=== PATIENT | male | born 1970 | race Hispanic/Latino ===

== ENCOUNTER 2018-02-04 11:22 | Outpatient (CLI) | payer OTHER | END 2018-02-04 11:23 | disposition home or self-care (01) | LOC: BICRAD 11:22 | DX: S99.911A Unspecified injury of right ankle, initial encounter (principal); R60.0 Localized edema ==

== ENCOUNTER 2018-02-05 10:21 | Inpatient (IN) | payer OTHER, SELFPAY ==
[2018-02-05] MEDS ORDERED: Ketorolac Tromethamine 30 MG/ML VIAL ONE (11:10)
[2018-02-05] MEDS ORDERED: Piperacillin/Tazobactam 4.5 GM VIAL ONE (11:10)
[2018-02-05] MEDS ORDERED: Clindamycin/D5W 900 mg/50 ml Premix Bag ONE (11:10)
[2018-02-05] MEDS ORDERED: Ondansetron ODT 4 MG TAB ONE (11:12)
[2018-02-05 11:29] LABS: Hemoglobin 15.6 g/dL (14.0-18.0); Mean Corpuscular HGB CONC 34.7 g/dL (32.0-36.0); Mean Corpuscular Hemoglobin 32.3 pg (27.0-31.0); Mean Corpuscular Volume 92.9 fL (78.0-98.0); Mean Platelet Volume 7.6 fL (7.4-10.4); Platelet Count 206 thou/uL (130-400); RBC Distribution Width 13.1 % (11.5-14.5); Red Blood Cell (RBC) Count 4.83 mill/uL (4.70-6.10); White Blood Cell (WBC) Count 17.5 thou/uL (4.8-10.8)
[2018-02-05 11:50] LABS: ALT (SGPT) 15 U/L (8-55); AST (SGOT) 12 U/L (5-34); Albumin 3.9 g/dL (3.5-5.0); Alkaline Phosphatase 81 U/L (40-150); Anion Gap 14 mmol/L (10-20); BUN (Urea Nitrogen) 11 mg/dL (8.9-20.6); Bilirubin, Total 2.4 mg/dL (0.2-1.2); Calc. Creatinine Clearance 0 mL/min (70-130); Calcium 9.3 mg/dL (7.8-10.44); Carbon Dioxide 24 mmol/L (22-29); Chloride 102 mmol/L (98-107); Estimated GFR-MDRD 70; Globulin 3.6 g/dL (2.4-3.5); Glucose 123 mg/dL (70-105); Potassium 3.8 mmol/L (3.5-5.1); Protein, Total 7.5 g/dL (6.0-8.3); Sodium 136 mmol/L (136-145)
[2018-02-05 12:10] LABS: Band 24 % (5-11); Lymphocytes 9 % (21-51); MDiff Complete? YES; Monocytes 4 % (0-10); Neutrophil 62 % (42-75); RBC Morphology Normal; Reactive Lymphocytes 1 % (0-10)
[2018-02-05] MEDS ORDERED: Mag-Al 1200 mg/1200 mg/30 ML UDCUP PO PRN (13:47)
[2018-02-05] MEDS ORDERED: Loperamide HCl 2 MG CAP PO PRN (13:47)
[2018-02-05] MEDS ORDERED: Acetaminophen 325 MG TAB PO PRN (13:47)
[2018-02-05] MEDS ORDERED: Sodium Chloride 0.65% Nasal 44 ML BOT EA NARE PRN (13:47)
[2018-02-05] MEDS ORDERED: Loratadine 10 MG TAB PO PRN (13:47)
[2018-02-05] MEDS ORDERED: Eucerin (Mineral Oil/Petrolatum,White) 30 gm Jar TOP PRN (13:47)
[2018-02-05] MEDS ORDERED: Milk Of Magnesia 30 ML UDCUP PO PRN (13:47)
[2018-02-05] MEDS ORDERED: Chloraseptic Spray 180 ml Bottle PO PRN (13:47)
[2018-02-05] MEDS ORDERED: Ondansetron HCl/PF 4 MG/2 ML Vial IVP PRN (13:47)
[2018-02-05] MEDS ORDERED: hydrALAZINE 20 MG/ML VIAL SLOW IVP PRN (13:47)
[2018-02-05] MEDS ORDERED: Diabetic Tussin 200 MG/10 ML UDCUP PO PRN (13:47)
[2018-02-05] MEDS ORDERED: Artificial Tear Sol 15 ML BOT EA EYE PRN (13:47)
[2018-02-05] MEDS ORDERED: Ondansetron ODT 4 MG TAB PO PRN (13:47)
[2018-02-05] MEDS ORDERED: Senokot 8.6 MG TAB PO PRN (13:47)
[2018-02-05] MEDS ORDERED: Zolpidem Tartrate 5 MG TAB PO PRN (13:47)
[2018-02-05] MEDS: Sodium Chloride 0.9% 1,000 ML IV SCH ×2 (14:00→22:09)
--- NOTE | 2018-02-05 14:03 | HP ---
PRIMARY CARE PHYSICIAN: Patient does not have any primary care physician. REASON FOR ADMISSION: Right lower extremity cellulitis, sepsis. HISTORY OF PRESENT ILLNESS: A 47-year-old male who noticed right lower extremity erythema, swelling, tenderness on 02/01/2018. Patient's symptoms gradually gotten worse over the kend. He made appointment with primary care physician yesterday who prescribed antibiotic therapy wi th clindamycin. Even after that, patient was noticing that his lower extremity swelling was getting worse and he was getting more erythematous, tender, and he started having fever with chills. He was not feeling any better with oral antibiotic therapy and that is why he decided to come to emergency r oom for evaluation. In the emergency room, patient had sepsis alert. He had leukocytosis, tachycardia, and febrile with temperature of 101.4. He was having increasing erythema, swelling, and tenderness over right lower e xtremity and patient's symptoms were getting worse with walking. He denies any trauma. He denies an y insect bite. He denies any nausea, vomiting or diarrhea. He denies any UTI symptoms. He denies a ny constipation, diarrhea, melena or hematochezia. He denies any abdominal pain. REVIEW OF SYSTEMS: The following complete review of systems was negative, unless otherwise mentioned in the HPI or below: Constitutional: Weight loss or gain, ability to conduct usual activities. Skin: Rash, itching. Eyes: Double vision, pain. ENT/Mouth: Nose bleeding, neck stiffness, pain, tenderness. Cardiovascular: Palpitations, dyspnea on exertion, orthopnea. Respiratory: Shortness of breath, wheezing, cough, hemoptysis, fever or night sweats. Gastrointestinal: Poor appetite, abdominal pain, heartburn, nausea, vomiting, constipation, or diarr hea. Genitourinary: Urgency, frequency, dysuria, nocturia. Musculoskeletal: Pain, swelling. Neurologic/Psychiatric: Anxiety, depression. Allergy/Immunologic: Skin rash, bleeding tendency. Please see my HPI for pertinent positive and negative. All other review of systems reviewed and nega tive except as mentioned in the HPI. PAST MEDICAL HISTORY: The patient does not have any medical history. Patient reports that he had si milar cellulitis in the past. He was also one time admitted in our hospital for left foot infection. He has history of snake bite. PAST SURGICAL HISTORY: Reviewed and negative. PAST PHYSIATRIC HISTORY: Reviewed and negative. SOCIAL HISTORY: The patient lives at home with family. No history of tobacco, alcohol or illicit dr ug abuse. He is doing manual labor work. FAMILY HISTORY: No strong family history of premature coronary artery disease, stroke or cancer. No family history of diabetes. ALLERGIES: The patient does not have any real drug allergy. He is not sure about vancomycin allergy . He tolerated vancomycin in the emergency room very well. CURRENT HOME MEDICATIONS: Patient is given clindamycin and patient is not able to tell me the dose. EMERGENCY ROOM COURSE: Patient has received vancomycin, clindamycin, Zosyn, Zofran 4 mg, morphine 4 mg, Toradol 30 mg, IV fluid 2 liter. PHYSICAL EXAMINATION: VITAL SIGNS: On arrival, pulse 111, temperature 101.4, respiratory rate 24, blood pressure 115/72, s aturation 98% on room air, weight 89.8 kilograms. GENERAL: Patient is currently alert, awake, no obvious acute distress. HEAD: Normocephalic, atraumatic. EYES: Pupils round, reactive to light. Extraocular muscle intact. ENT: Oropharynx within normal limits. Moist mucous membranes. No oral lesion, no pharyngeal erythe ma, no exudate. NECK: Supple, no JVD, no thyromegaly, no carotid bruit, no jugular venous distention. LUNGS: Clear to auscultation without any rhonchi or rales. CARDIAC: S1 and S2 regular, tachycardia, no murmur, no gallop, no rub. ABDOMEN: Soft, bowel sounds present, nontender, nondistended. No organomegaly, no mass, no suprapub ic tenderness. BACK: Examination unremarkable, no CVA tenderness. EXTREMITIES: Upper extremity passive movement of all joints are normal. Lower extremity; right lowe r extremity erythematous, swollen, tender. Right foot has a nail deformity. No calf tenderness. No groin tenderness. Left lower extremity within normal limit. NEUROLOGIC: The patient is alert, oriented x3. Cranial nerves II-XII intact. Motor and sensation w ithin normal limits. Nonfocal examination. PSYCHIATRIC: Normal affect. HEMATOLOGICAL SYSTEM: No lymphadenopathy. SIGNIFICANT LABORATORY DATA: 1. CBC: WBC 17.5, hemoglobin 15.6, platelet 206 with bandemia. BMP: Sodium 136, potassium 3.8, ch loride 102, carbon dioxide 24, anion gap 14, BUN 11, creatinine 1.12, glucose 123, calcium 9.3, lacti c acid 1.5. 2. LFT: AST 12, ALT 15, alkaline phosphatase 81, albumin 3.9. ASSESSMENT AND PLAN/IMPRESSION: 1. Sepsis due to right lower extremity cellulitis with soft tissue infection. 2. Failure of outpatient therapy. 3. Right lower extremity cellulitis with sepsis. PLAN: 1. Full admission to medical floor. We will continue with Rocephin 2 gram IV daily, clindamycin 600 mg IV q.6 hourly, Florastor 250 mg p.o. b.i.d. Pain control with morphine 4 mg every 4 hourly p.r.n . and Toradol 15 mg IV q.6 hourly p.r.n. Patient will be given IV fluid with NS at 125 mL per hour. The patient is advised to keep his right lower extremity elevated. We will repeat the CBC, CMP, and CRP tomorrow. We will follow up on culture result. 2. Deep venous thrombosis prophylaxis, Lovenox 40 mg subcu daily. 3. Gastrointestinal prophylaxis, Pepcid 20 mg p.o. b.i.d. 4. Code status: The patient is FULL CODE. Patient's son is surrogate decision maker. Disposition plan based on clinical course. We are expecting patient's stay in hospital more than 2 m idnights. Plan of care discussed with the patient and family member at bedside in the emergency room in detail.
[2018-02-05 14:26] VITALS: BMI 29.9
[2018-02-05] MEDS: cefTRIAXone\\ROCEPHIN 2 GM in Sodium Chloride 0.9% 100 ML IVPB SCH (16:04)
[2018-02-05] MEDS: Clindamycin/D5W 600 MG in Premix Bag 1 BAG IVPB SCH ×2 (17:33→23:44)
[2018-02-05] MEDS: Famotidine 20 MG TAB PO SCH (19:57)
[2018-02-05] MEDS: HYDROcodone/Acetaminophen 5/325 mg Tablet PO PRN (23:47)
[2018-02-06] MEDS: Sodium Chloride 0.9% 1,000 ML IV SCH ×3 (02:34→20:20)
[2018-02-06 05:19] LABS: #Eosinphils 0.1 thou/uL (0.0-0.7); #Lymphocytes 1.5 thou/uL (1.20-3.40); #Monocytes 0.6 thou/uL (0.11-0.59); #Neutrophils 8.2 thou/uL (1.40-6.50); %Basophils 0.2 % (0.0-1.0); %Eosinophils 0.5 % (0.0-10.0); %Lymphocytes 14.1 % (21.0-51.0); %Neutrophils 79.2 % (42.0-75.0); Hemoglobin 13.9 g/dL (14.0-18.0); Mean Corpuscular HGB CONC 35.4 g/dL (32.0-36.0); Mean Corpuscular Hemoglobin 33.1 pg (27.0-31.0); Mean Corpuscular Volume 93.5 fL (78.0-98.0); Mean Platelet Volume 7.4 fL (7.4-10.4); Platelet Count 194 thou/uL (130-400); RBC Distribution Width 13.2 % (11.5-14.5); Red Blood Cell (RBC) Count 4.19 mill/uL (4.70-6.10); White Blood Cell (WBC) Count 10.4 thou/uL (4.8-10.8)
[2018-02-06] MEDS: Clindamycin/D5W 600 MG in Premix Bag 1 BAG IVPB SCH ×4 (05:27→23:11)
[2018-02-06 05:39] LABS: ALT (SGPT) 13 U/L (8-55); AST (SGOT) 13 U/L (5-34); Albumin 3.2 g/dL (3.5-5.0); Alkaline Phosphatase 74 U/L (40-150); Anion Gap 13 mmol/L (10-20); BUN (Urea Nitrogen) 11 mg/dL (8.9-20.6); Bilirubin, Total 1.2 mg/dL (0.2-1.2); CRP (Inflammatory) 24.29 mg/dL (= or < 0.5); Calc. Creatinine Clearance 106 mL/min (70-130); Calcium 8.4 mg/dL (7.8-10.44); Carbon Dioxide 19 mmol/L (22-29); Chloride 108 mmol/L (98-107); Estimated GFR-MDRD 72; Globulin 3.2 g/dL (2.4-3.5); Glucose 104 mg/dL (70-105); Potassium 3.4 mmol/L (3.5-5.1); Protein, Total 6.4 g/dL (6.0-8.3); Sodium 137 mmol/L (136-145)
[2018-02-06] MEDS ORDERED: Potassium Chloride 20 MEQ TAB PO SCH (07:30)
[2018-02-06] MEDS: Famotidine 20 MG TAB PO SCH ×2 (08:21→20:18)
[2018-02-06] MEDS: Saccharomyces boulardii 250 MG CAP PO SCH (08:21)
[2018-02-06] MEDS: Enoxaparin Sodium 40 MG/0.4 ML SYRINGE SC SCH (08:22)
[2018-02-06] MEDS: Ketorolac Tromethamine 30 MG/ML VIAL IVP PRN ×2 (08:27→20:20)
--- NOTE | 2018-02-06 11:44 | PDOC.PN ---
- Subjective Encounter Start Date: 02/06/18 Encounter Start Time: 09:15 -: old records requested/rev Patient seen and examined for cellulitis, no fever, has pain in right leg. No new complaints. No overnight events - Objective Resuscitation Status: Resuscitation Status FULL:Full Resuscitation MAR Reviewed: Yes Vital Signs & Weight: Vital Signs (12 hours) Temp Pulse Resp BP Pulse Ox 02/06/18 07:52 97.6 F 71 16 99 02/06/18 07:50 97.6 F 71 16 108/64 100 02/06/18 06:30 97.4 F L 73 18 107/70 99 02/06/18 01:07 98.0 F 87 18 118/73 98 I&O: 02/05/18 02/06/18 02/07/18 06:59 06:59 06:59 Intake Total 2100 Output Total 1225 Balance 875 Result Diagrams: 02/06/18 04:54 02/06/18 04:54 Phys Exam - Physical Examination Constitutional: NAD HEENT: PERRLA, moist MMs, sclera anicteric Neck: no JVD, supple Respiratory: no wheezing, no rales, no rhonchi Cardiovascular: RRR, no significant murmur, no rub Gastrointestinal: soft, non-tender, no distention, positive bowel sounds Musculoskeletal: no edema, pulses present right leg cellulitis and tenderness Neurological: non-focal, normal sensation, moves all 4 limbs Psychiatric: normal affect, A&O x 3 Skin: no rash, normal turgor Dx/Plan (1) Cellulitis of right leg Code(s): L03.115 - CELLULITIS OF RIGHT LOWER LIMB Status: Acute (2) Failure of outpatient treatment Code(s): Z78.9 - OTHER SPECIFIED HEALTH STATUS Status: Acute (3) Hypokalemia Code(s): E87.6 - HYPOKALEMIA Status: Acute (4) Sepsis affecting skin Code(s): A41.9 - SEPSIS, UNSPECIFIED ORGANISM Status: Acute - Plan cont current plan of care, plan discussed w/ family, continue antibiotics * continue rocephin and clindamycin * pain control with toradol and morphin * medication reviewed as below * symptomatic treatment * follow culture * discussed with son * replace potassium. * continue IVF * will get US right leg to rule out DVT Review of Systems - Review of Systems Constitutional: negative: fever, chills, sweats, weakness, malaise, other Eyes: negative: Pain, Vision Change, Conjunctivae Inflammation, Eyelid Inflammation, Redness, Other ENT: negative: Ear Pain, Ear Discharge, Nose Pain, Nose Discharge, Nose Congestion, Mouth Pain, Mouth Swelling, Throat Pain, Throat Swelling, Other Respiratory: negative: Cough, Dry, Shortness of Breath, Hemoptysis, SOB with Excertion, Pleuritic Pain, Sputum, Wheezing Cardiovascular: negative: chest pain, palpitations, orthopnea, paroxysmal nocturnal dyspnea, edema, light headedness, other Gastrointestinal: negative: Nausea, Vomiting, Abdominal Pain, Diarrhea, Constipation, Melena, Hematochezia, Other Genitourinary: negative: Dysuria, Frequency, Incontinence, Hematuria, Retention , Other Musculoskeletal: Leg Pain. negative: Neck Pain, Shoulder Pain, Arm Pain, Back Pain, Hand Pain, Foot Pain, Other - Medications/Allergies Allergies/Adverse Reactions: Allergies Allergy/AdvReac Type Severity Reaction Status Date / Time vancomycin AdvReac Mild Rash Verified 09/21/13 19:35 Medications: Current Medications Acetaminophen (Tylenol) 650 mg PO Q4H PRN PRN Reason: Headache/Fever or Pain Hydrocodone Bitart/Acetaminophen ([place] 5/325) 1 tab PO Q4H PRN PRN Reason: Moderate Pain (4-6) Last Admin: 02/05/18 23:47 Dose: 1 tab Al Hydroxide/Mg Hydroxide (Maalox) 30 ml PO Q6H PRN PRN Reason: Heartburn or Indigestion Artificial Tears (Tears Renewed 15ml Bottle) 0 drop EA EYE PRN PRN PRN Reason: Dry Eyes Enoxaparin Sodium (Lovenox) 40 mg SC 0900 [facility] Last Admin: 02/06/18 08:22 Dose: 40 mg Famotidine (Pepcid) 20 mg PO BID [facility] Last Admin: 02/06/18 08:21 Dose: 20 mg Guaifenesin (Robitussin Sf) 200 mg PO Q4H PRN PRN Reason: Cough Hydralazine HCl (Apresoline) 10 mg SLOW IVP Q4H PRN PRN Reason: Systolic BP > 180 Ceftriaxone Sodium 2 gm/ (Sodium Chloride) 100 mls @ 200 mls/hr IVPB Q24HR [facility] Last Admin: 02/05/18 16:04 Dose: 100 mls Clindamycin Phosphate/Dextrose (600 mg/ Device) 50 mls @ 100 mls/hr IVPB Q6HR [facility] Last Admin: 02/06/18 05:27 Dose: 50 mls Sodium Chloride (Normal Saline 0.9%) 1,000 mls @ 125 mls/hr IV .Q8H [facility] Last Admin: 02/06/18 02:34 Dose: 1,000 mls Ketorolac Tromethamine (Toradol) 15 mg IVP Q6H PRN PRN Reason: Pain Stop: 02/10/18 13:48 Last Admin: 02/06/18 08:27 Dose: 15 mg Loperamide HCl (Imodium) 2 mg PO PRN PRN PRN Reason: Diarrhea/Loose Stools Loratadine (Claritin) 10 mg PO DAILYPRN PRN PRN Reason: Sinus Symptoms Magnesium Hydroxide (Milk Of Magnesium) 30 ml PO DAILYPRN PRN PRN Reason: Constipation Mineral Oil/White Petrolatum (Eucerin Cream) 0 gm TOP BIDPRN PRN PRN Reason: Dry Skin Morphine Sulfate (Morphine Sulfate) 4 mg SLOW IVP Q4H PRN PRN Reason: Severe Pain (7-10) Ondansetron HCl (Zofran Odt) 4 mg PO Q6H PRN PRN Reason: Nausea/Vomiting Ondansetron HCl (Zofran) 4 mg IVP Q6H PRN PRN Reason: Nausea/Vomiting Phenol (Chloraseptic [place] 180 Ml Bot) 0 ml PO PRN PRN PRN Reason: Sore Throat Saccharomyces Boulardii (Florastor) 250 mg PO DAILY [facility] Last Admin: 02/06/18 08:21 Dose: 250 mg Senna (Senokot) 2 tab PO HSPRN PRN PRN Reason: Constipation Sodium Chloride ([place] Nasal [place] 0.65%) 0 ml EA NARE QIDPRN PRN PRN Reason: Nasal Congestion Sodium Chloride (Flush - Normal Saline) 10 ml IVF Q12HR [facility] Last Admin: 02/06/18 08:22 Dose: 10 ml Sodium Chloride (Flush - Normal Saline) 10 ml IVF PRN PRN PRN Reason: Saline Flush Zolpidem Tartrate (Ambien) 5 mg PO HSPRN PRN PRN Reason: Insomnia
--- NOTE | 2018-02-06 13:04 | ULT ---
VENOUS DOPPLER ULTRASOUND OF THE RIGHT LOWER EXTREMITY: HISTORY: Right leg edema. Ulceration of the medial ankle. TECHNIQUE: Frank scale ultrasound with color flow and spectral Doppler imaging of the deep venous system of the r ight lower extremity was performed. FINDINGS: There is good flow, compression, and augmentation noted in the common femoral, femoral, deep femoral, popliteal, posterior tibial, and greater saphenous veins in the right lower extremity. There are enlarged lymph nodes in the right groin measuring up to 4.3 cm in maximum dimension. There is an 11.7 x 1.5 x 2.7 cm complex fluid collection in the soft tissues of the medial aspect of the r ight ankle. The possibility of this representing an abscess cannot be excluded. IMPRESSION: No evidence of deep vein thrombosis in the right lower extremity. Please see above. POS: DANIAL
[2018-02-06] MEDS: cefTRIAXone\\ROCEPHIN 2 GM in Sodium Chloride 0.9% 100 ML IVPB SCH (14:50)
[2018-02-07] MEDS: Clindamycin/D5W 600 MG in Premix Bag 1 BAG IVPB SCH ×3 (05:31→17:29)
[2018-02-07] MEDS: Sodium Chloride 0.9% 1,000 ML IV SCH ×3 (05:31→23:21)
[2018-02-07] MEDS: Ketorolac Tromethamine 30 MG/ML VIAL IVP PRN ×3 (05:34→21:01)
[2018-02-07] MEDS: Enoxaparin Sodium 40 MG/0.4 ML SYRINGE SC SCH (08:20)
[2018-02-07] MEDS: Famotidine 20 MG TAB PO SCH ×2 (08:20→20:58)
[2018-02-07] MEDS: Saccharomyces boulardii 250 MG CAP PO SCH (08:20)
--- NOTE | 2018-02-07 11:30 | PDOC.PN ---
- Subjective Encounter Start Date: 02/07/18 Encounter Start Time: 10:00 Patient seen and examined for cellulitis right leg, he has pain with walking. No overnight events - Objective Resuscitation Status: Resuscitation Status FULL:Full Resuscitation MAR Reviewed: Yes Vital Signs & Weight: Vital Signs (12 hours) Temp Pulse Resp BP Pulse Ox 02/07/18 07:41 97.8 F 72 20 123/77 98 I&O: 02/06/18 02/07/18 02/08/18 06:59 06:59 06:59 Intake Total 2100 4220 Output Total 1225 1800 Balance 875 2420 Result Diagrams: 02/06/18 04:54 02/06/18 04:54 Radiology Reviewed by me: Yes (US leg- No DVT) Phys Exam - Physical Examination Constitutional: NAD HEENT: PERRLA, moist MMs, sclera anicteric Neck: no JVD, supple Respiratory: no wheezing, no rales, no rhonchi Cardiovascular: RRR, no significant murmur, no rub Gastrointestinal: soft, non-tender, no distention, positive bowel sounds Musculoskeletal: no edema, pulses present cellulitis right leg is improving Neurological: non-focal, normal sensation, moves all 4 limbs Psychiatric: normal affect, A&O x 3 Skin: no rash, normal turgor Dx/Plan (1) Cellulitis of right leg Code(s): L03.115 - CELLULITIS OF RIGHT LOWER LIMB Status: Acute (2) Failure of outpatient treatment Code(s): Z78.9 - OTHER SPECIFIED HEALTH STATUS Status: Acute (3) Hypokalemia Code(s): E87.6 - HYPOKALEMIA Status: Acute (4) Sepsis affecting skin Code(s): A41.9 - SEPSIS, UNSPECIFIED ORGANISM Status: Acute - Plan cont current plan of care, plan discussed w/ family, continue antibiotics * continue rocephin, clindamycin * will add vancomycin * continue pain control * medication reviewed as below * symptomatic treatment. * discussed with family Review of Systems - Review of Systems Eyes: negative: Pain, Vision Change, Conjunctivae Inflammation, Eyelid Inflammation, Redness, Other ENT: negative: Ear Pain, Ear Discharge, Nose Pain, Nose Discharge, Nose Congestion, Mouth Pain, Mouth Swelling, Throat Pain, Throat Swelling, Other Respiratory: negative: Cough, Dry, Shortness of Breath, Hemoptysis, SOB with Excertion, Pleuritic Pain, Sputum, Wheezing Cardiovascular: negative: chest pain, palpitations, orthopnea, paroxysmal nocturnal dyspnea, edema, light headedness, other Gastrointestinal: negative: Nausea, Vomiting, Abdominal Pain, Diarrhea, Constipation, Melena, Hematochezia, Other Genitourinary: negative: Dysuria, Frequency, Incontinence, Hematuria, Retention , Other Musculoskeletal: Leg Pain. negative: Neck Pain, Shoulder Pain, Arm Pain, Back Pain, Hand Pain, Foot Pain, Other Skin: negative: Rash, Lesions, [place], Bruising, Other - Medications/Allergies Allergies/Adverse Reactions: Allergies Allergy/AdvReac Type Severity Reaction Status Date / Time No Known Allergies Allergy Verified 02/07/18 08:25 Medications: Current Medications Acetaminophen (Tylenol) 650 mg PO Q4H PRN PRN Reason: Headache/Fever or Pain Hydrocodone Bitart/Acetaminophen ([place] 5/325) 1 tab PO Q4H PRN PRN Reason: Moderate Pain (4-6) Last Admin: 02/05/18 23:47 Dose: 1 tab Al Hydroxide/Mg Hydroxide (Maalox) 30 ml PO Q6H PRN PRN Reason: Heartburn or Indigestion Artificial Tears (Tears Renewed 15ml Bottle) 0 drop EA EYE PRN PRN PRN Reason: Dry Eyes Enoxaparin Sodium (Lovenox) 40 mg SC 0900 [facility] Last Admin: 02/07/18 08:20 Dose: 40 mg Famotidine (Pepcid) 20 mg PO BID [facility] Last Admin: 02/07/18 08:20 Dose: 20 mg Guaifenesin (Robitussin Sf) 200 mg PO Q4H PRN PRN Reason: Cough Hydralazine HCl (Apresoline) 10 mg SLOW IVP Q4H PRN PRN Reason: Systolic BP > 180 Ceftriaxone Sodium 2 gm/ (Sodium Chloride) 100 mls @ 200 mls/hr IVPB Q24HR [facility] Last Admin: 02/06/18 14:50 Dose: 100 mls Clindamycin Phosphate/Dextrose (600 mg/ Device) 50 mls @ 100 mls/hr IVPB Q6HR [facility] Last Admin: 02/07/18 05:31 Dose: 50 mls Sodium Chloride (Normal Saline 0.9%) 1,000 mls @ 125 mls/hr IV .Q8H [facility] Last Admin: 02/07/18 05:31 Dose: 1,000 mls Ketorolac Tromethamine (Toradol) 15 mg IVP Q6H PRN PRN Reason: Pain Stop: 02/10/18 13:48 Last Admin: 02/07/18 05:34 Dose: 15 mg Loperamide HCl (Imodium) 2 mg PO PRN PRN PRN Reason: Diarrhea/Loose Stools Loratadine (Claritin) 10 mg PO DAILYPRN PRN PRN Reason: Sinus Symptoms Magnesium Hydroxide (Milk Of Magnesium) 30 ml PO DAILYPRN PRN PRN Reason: Constipation Mineral Oil/White Petrolatum (Eucerin Cream) 0 gm TOP BIDPRN PRN PRN Reason: Dry Skin Morphine Sulfate (Morphine Sulfate) 4 mg SLOW IVP Q4H PRN PRN Reason: Severe Pain (7-10) Ondansetron HCl (Zofran Odt) 4 mg PO Q6H PRN PRN Reason: Nausea/Vomiting Ondansetron HCl (Zofran) 4 mg IVP Q6H PRN PRN Reason: Nausea/Vomiting Phenol (Chloraseptic [place] 180 Ml Bot) 0 ml PO PRN PRN PRN Reason: Sore Throat Saccharomyces Boulardii (Florastor) 250 mg PO DAILY [facility] Last Admin: 02/07/18 08:20 Dose: 250 mg Senna (Senokot) 2 tab PO HSPRN PRN PRN Reason: Constipation Sodium Chloride ([place] Nasal [place] 0.65%) 0 ml EA NARE QIDPRN PRN PRN Reason: Nasal Congestion Sodium Chloride (Flush - Normal Saline) 10 ml IVF Q12HR [facility] Last Admin: 02/07/18 08:20 Dose: 10 ml Sodium Chloride (Flush - Normal Saline) 10 ml IVF PRN PRN PRN Reason: Saline Flush Zolpidem Tartrate (Ambien) 5 mg PO HSPRN PRN PRN Reason: Insomnia
[2018-02-07] MEDS: cefTRIAXone\\ROCEPHIN 2 GM in Sodium Chloride 0.9% 100 ML IVPB SCH (15:24)
[2018-02-08] MEDS: Clindamycin/D5W 600 MG in Premix Bag 1 BAG IVPB SCH ×2 (02:30→07:18)
[2018-02-08] MEDS: Sodium Chloride 0.9% 1,000 ML IV SCH (06:09)
[2018-02-08] MEDS: Famotidine 20 MG TAB PO SCH ×2 (08:47→21:04)
[2018-02-08] MEDS: Enoxaparin Sodium 40 MG/0.4 ML SYRINGE SC SCH (08:47)
[2018-02-08] MEDS: Saccharomyces boulardii 250 MG CAP PO SCH (08:48)
[2018-02-08] MEDS: HYDROcodone/Acetaminophen 5/325 mg Tablet PO PRN ×2 (08:58→17:47)
[2018-02-08 09:16] LABS: #Eosinphils 0.1 thou/uL (0.0-0.7); #Lymphocytes 0.9 thou/uL (1.20-3.40); #Monocytes 0.4 thou/uL (0.11-0.59); #Neutrophils 5.2 thou/uL (1.40-6.50); %Basophils 0.2 % (0.0-1.0); %Eosinophils 1.1 % (0.0-10.0); %Lymphocytes 13.2 % (21.0-51.0); %Monocytes 5.8 % (0.0-10.0); %Neutrophils 79.7 % (42.0-75.0); Hemoglobin 14.1 g/dL (14.0-18.0); Mean Corpuscular HGB CONC 35.4 g/dL (32.0-36.0); Mean Corpuscular Hemoglobin 32.1 pg (27.0-31.0); Mean Corpuscular Volume 90.6 fL (78.0-98.0); Mean Platelet Volume 7.2 fL (7.4-10.4); Platelet Count 237 thou/uL (130-400); RBC Distribution Width 12.7 % (11.5-14.5); Red Blood Cell (RBC) Count 4.41 mill/uL (4.70-6.10); White Blood Cell (WBC) Count 6.5 thou/uL (4.8-10.8)
[2018-02-08 09:33] LABS: Anion Gap 13 mmol/L (10-20); BUN (Urea Nitrogen) 9 mg/dL (8.9-20.6); CRP (Inflammatory) 6.56 mg/dL (= or < 0.5); Calc. Creatinine Clearance 142 mL/min (70-130); Carbon Dioxide 22 mmol/L (22-29); Chloride 106 mmol/L (98-107); Estimated GFR-MDRD Greater than 90; Glucose 133 mg/dL (70-105); Sodium 137 mmol/L (136-145)
[2018-02-08] MEDS: Vancomycin HCl 1.25 GM in Sodium Chloride 0.9% 250 ML 250 ML IVPB SCH ×2 (10:37→17:31)
--- NOTE | 2018-02-08 11:31 | PDOC.PN ---
- Subjective Encounter Start Date: 02/08/18 Encounter Start Time: 09:30 Patient seen and examined for cellulitis, he has pain with walking, pt feels more erythema lower leg. No new complaints. No overnight events - Objective Resuscitation Status: Resuscitation Status FULL:Full Resuscitation MAR Reviewed: Yes Vital Signs & Weight: Vital Signs (12 hours) Temp Pulse Resp BP Pulse Ox 02/08/18 08:00 97.8 F 66 18 122/79 97 02/08/18 06:31 98.0 F 79 20 129/78 97 02/08/18 00:00 97.7 F 70 20 127/75 97 I&O: 02/07/18 02/08/18 02/09/18 06:59 06:59 06:59 Intake Total 4220 1739 240 Output Total 1800 Balance 2420 1739 240 Result Diagrams: 02/08/18 09:01 02/08/18 09:01 Phys Exam - Physical Examination Constitutional: NAD HEENT: PERRLA, moist MMs, sclera anicteric Neck: no JVD, supple Respiratory: no wheezing, no rales, no rhonchi Cardiovascular: RRR, no significant murmur, no rub Gastrointestinal: soft, non-tender, no distention, positive bowel sounds Musculoskeletal: no edema, pulses present right leg erythema, swelling Neurological: non-focal, normal sensation, moves all 4 limbs Psychiatric: normal affect, A&O x 3 Skin: no rash, normal turgor Dx/Plan (1) Cellulitis of right leg Code(s): L03.115 - CELLULITIS OF RIGHT LOWER LIMB Status: Acute (2) Failure of outpatient treatment Code(s): Z78.9 - OTHER SPECIFIED HEALTH STATUS Status: Acute (3) Hypokalemia Code(s): E87.6 - HYPOKALEMIA Status: Acute (4) Sepsis affecting skin Code(s): A41.9 - SEPSIS, UNSPECIFIED ORGANISM Status: Acute - Plan cont current plan of care, plan discussed w/ family, continue antibiotics * i doubt at this point any surgical need * will consult dr vasquez * continue rocephin and vancomycin * dc clindamycin * lab lara has improvement * he may have microabscess or underlying myositis/tendinitis * medication reviewed as below * symptomatic treatment Review of Systems - Review of Systems Constitutional: negative: fever, chills, sweats, weakness, malaise, other Eyes: negative: Pain, Vision Change, Conjunctivae Inflammation, Eyelid Inflammation, Redness, Other ENT: negative: Ear Pain, Ear Discharge, Nose Pain, Nose Discharge, Nose Congestion, Mouth Pain, Mouth Swelling, Throat Pain, Throat Swelling, Other Respiratory: negative: Cough, Dry, Shortness of Breath, Hemoptysis, SOB with Excertion, Pleuritic Pain, Sputum, Wheezing Cardiovascular: negative: chest pain, palpitations, orthopnea, paroxysmal nocturnal dyspnea, edema, light headedness, other Gastrointestinal: negative: Nausea, Vomiting, Abdominal Pain, Diarrhea, Constipation, Melena, Hematochezia, Other Genitourinary: negative: Dysuria, Frequency, Incontinence, Hematuria, Retention , Other Musculoskeletal: Leg Pain. negative: Neck Pain, Shoulder Pain, Arm Pain, Back Pain, Hand Pain, Foot Pain, Other - Medications/Allergies Allergies/Adverse Reactions: Allergies Allergy/AdvReac Type Severity Reaction Status Date / Time No Known Allergies Allergy Verified 02/07/18 08:25 Medications: Current Medications Acetaminophen (Tylenol) 650 mg PO Q4H PRN PRN Reason: Headache/Fever or Pain Hydrocodone Bitart/Acetaminophen ([place] 5/325) 1 tab PO Q4H PRN PRN Reason: Moderate Pain (4-6) Last Admin: 02/08/18 08:58 Dose: 1 tab Al Hydroxide/Mg Hydroxide (Maalox) 30 ml PO Q6H PRN PRN Reason: Heartburn or Indigestion Artificial Tears (Tears Renewed 15ml Bottle) 0 drop EA EYE PRN PRN PRN Reason: Dry Eyes Enoxaparin Sodium (Lovenox) 40 mg SC 0900 [facility] Last Admin: 02/08/18 08:47 Dose: 40 mg Famotidine (Pepcid) 20 mg PO BID [facility] Last Admin: 02/08/18 08:47 Dose: 20 mg Guaifenesin (Robitussin Sf) 200 mg PO Q4H PRN PRN Reason: Cough Hydralazine HCl (Apresoline) 10 mg SLOW IVP Q4H PRN PRN Reason: Systolic BP > 180 Ceftriaxone Sodium 2 gm/ (Sodium Chloride) 100 mls @ 200 mls/hr IVPB Q24HR [facility] Last Admin: 02/07/18 15:24 Dose: 100 mls Vancomycin HCl 1.25 gm/ Sodium (Chloride) 250 mls @ 166.667 mls/hr IVPB 0200, 1000,1800 [facility] Last Admin: 02/08/18 10:37 Dose: 250 mls Ketorolac Tromethamine (Toradol) 15 mg IVP Q6H PRN PRN Reason: Pain Stop: 02/10/18 13:48 Last Admin: 02/07/18 21:01 Dose: 15 mg Loperamide HCl (Imodium) 2 mg PO PRN PRN PRN Reason: Diarrhea/Loose Stools Loratadine (Claritin) 10 mg PO DAILYPRN PRN PRN Reason: Sinus Symptoms Magnesium Hydroxide (Milk Of Magnesium) 30 ml PO DAILYPRN PRN PRN Reason: Constipation Last Admin: 02/07/18 20:59 Dose: 30 ml Mineral Oil/White Petrolatum (Eucerin Cream) 0 gm TOP BIDPRN PRN PRN Reason: Dry Skin Morphine Sulfate (Morphine Sulfate) 4 mg SLOW IVP Q4H PRN PRN Reason: Severe Pain (7-10) Ondansetron HCl (Zofran Odt) 4 mg PO Q6H PRN PRN Reason: Nausea/Vomiting Ondansetron HCl (Zofran) 4 mg IVP Q6H PRN PRN Reason: Nausea/Vomiting Phenol (Chloraseptic [place] 180 Ml Bot) 0 ml PO PRN PRN PRN Reason: Sore Throat Saccharomyces Boulardii (Florastor) 250 mg PO DAILY [facility] Last Admin: 02/08/18 08:48 Dose: 250 mg Senna (Senokot) 2 tab PO HSPRN PRN PRN Reason: Constipation Sodium Chloride ([place] Nasal [place] 0.65%) 0 ml EA NARE QIDPRN PRN PRN Reason: Nasal Congestion Sodium Chloride (Flush - Normal Saline) 10 ml IVF Q12HR [facility] Last Admin: 02/08/18 08:48 Dose: 10 ml Sodium Chloride (Flush - Normal Saline) 10 ml IVF PRN PRN PRN Reason: Saline Flush Zolpidem Tartrate (Ambien) 5 mg PO HSPRN PRN PRN Reason: Insomnia
[2018-02-08] MEDS ORDERED: Vancomycin HCl 1.5 GM in Sodium Chloride 0.9% 250 ML 300 ML IVPB SCH (12:00)
[2018-02-08] MEDS: cefTRIAXone\\ROCEPHIN 2 GM in Sodium Chloride 0.9% 100 ML IVPB SCH (14:10)
[2018-02-09] MEDS: Vancomycin HCl 1.25 GM in Sodium Chloride 0.9% 250 ML 250 ML IVPB SCH ×2 (02:55→10:51)
[2018-02-09] MEDS: HYDROcodone/Acetaminophen 5/325 mg Tablet PO PRN ×2 (03:15→19:57)
[2018-02-09] MEDS: Famotidine 20 MG TAB PO SCH ×2 (08:04→19:57)
[2018-02-09] MEDS: Saccharomyces boulardii 250 MG CAP PO SCH (08:04)
[2018-02-09] MEDS: Enoxaparin Sodium 40 MG/0.4 ML SYRINGE SC SCH (08:04)
--- NOTE | 2018-02-09 10:33 | PDOC.PN ---
- Subjective Encounter Start Date: 02/09/18 Encounter Start Time: 09:40 Patient seen and examined for cellulitis, still has leg pain. No overnight events - Objective Resuscitation Status: Resuscitation Status FULL:Full Resuscitation MAR Reviewed: Yes Vital Signs & Weight: Vital Signs (12 hours) Temp Pulse Resp BP Pulse Ox 02/09/18 08:00 98.0 F 59 L 18 144/87 H 98 02/09/18 04:00 97.7 F 59 L 18 120/72 98 02/09/18 00:00 97.8 F 60 18 129/77 98 I&O: 02/08/18 02/09/18 02/10/18 06:59 06:59 06:59 Intake Total 1739 3020 Balance 1739 3020 Result Diagrams: 02/08/18 09:01 02/08/18 09:01 Phys Exam - Physical Examination Constitutional: NAD HEENT: PERRLA, moist MMs, sclera anicteric Neck: no JVD, supple Respiratory: no wheezing, no rales, no rhonchi Cardiovascular: RRR, no significant murmur, no rub Gastrointestinal: soft, non-tender, no distention, positive bowel sounds right leg cellulitis Musculoskeletal: no edema, pulses present Neurological: non-focal, normal sensation, moves all 4 limbs Lymphatic: no nodes Psychiatric: normal affect, A&O x 3 Skin: no rash, normal turgor Dx/Plan (1) Cellulitis of right leg Code(s): L03.115 - CELLULITIS OF RIGHT LOWER LIMB Status: Acute (2) Failure of outpatient treatment Code(s): Z78.9 - OTHER SPECIFIED HEALTH STATUS Status: Acute (3) Hypokalemia Code(s): E87.6 - HYPOKALEMIA Status: Acute (4) Sepsis affecting skin Code(s): A41.9 - SEPSIS, UNSPECIFIED ORGANISM Status: Acute - Plan cont current plan of care, plan discussed w/ family, continue antibiotics * medication reviewed as below * symptomatic treatment * continue rocephin and vancomycin * pain control * ID consulted * discussed with son. Review of Systems - Review of Systems Eyes: negative: Pain, Vision Change, Conjunctivae Inflammation, Eyelid Inflammation, Redness, Other ENT: negative: Ear Pain, Ear Discharge, Nose Pain, Nose Discharge, Nose Congestion, Mouth Pain, Mouth Swelling, Throat Pain, Throat Swelling, Other Respiratory: negative: Cough, Dry, Shortness of Breath, Hemoptysis, SOB with Excertion, Pleuritic Pain, Sputum, Wheezing Cardiovascular: negative: chest pain, palpitations, orthopnea, paroxysmal nocturnal dyspnea, edema, light headedness, other Gastrointestinal: negative: Nausea, Vomiting, Abdominal Pain, Diarrhea, Constipation, Melena, Hematochezia, Other Genitourinary: negative: Dysuria, Frequency, Incontinence, Hematuria, Retention , Other Musculoskeletal: Leg Pain. negative: Neck Pain, Shoulder Pain, Arm Pain, Back Pain, Hand Pain, Foot Pain, Other Skin: negative: Rash, Lesions, Guzman, Bruising, Other - Medications/Allergies Allergies/Adverse Reactions: Allergies Allergy/AdvReac Type Severity Reaction Status Date / Time No Known Allergies Allergy Verified 02/07/18 08:25 Medications: Current Medications Acetaminophen (Tylenol) 650 mg PO Q4H PRN PRN Reason: Headache/Fever or Pain Hydrocodone Bitart/Acetaminophen ([place] 5/325) 1 tab PO Q4H PRN PRN Reason: Moderate Pain (4-6) Last Admin: 02/09/18 03:15 Dose: 1 tab Al Hydroxide/Mg Hydroxide (Maalox) 30 ml PO Q6H PRN PRN Reason: Heartburn or Indigestion Artificial Tears (Tears Renewed 15ml Bottle) 0 drop EA EYE PRN PRN PRN Reason: Dry Eyes Enoxaparin Sodium (Lovenox) 40 mg SC 0900 [facility] Last Admin: 02/09/18 08:04 Dose: 40 mg Famotidine (Pepcid) 20 mg PO BID [facility] Last Admin: 02/09/18 08:04 Dose: 20 mg Guaifenesin (Robitussin Sf) 200 mg PO Q4H PRN PRN Reason: Cough Hydralazine HCl (Apresoline) 10 mg SLOW IVP Q4H PRN PRN Reason: Systolic BP > 180 Ceftriaxone Sodium 2 gm/ (Sodium Chloride) 100 mls @ 200 mls/hr IVPB Q24HR [facility] Last Admin: 02/08/18 14:10 Dose: 100 mls Vancomycin HCl 1.25 gm/ Sodium (Chloride) 250 mls @ 166.667 mls/hr IVPB 0200, 1000,1800 [facility] Last Admin: 02/09/18 02:55 Dose: 250 mls Ketorolac Tromethamine (Toradol) 15 mg IVP Q6H PRN PRN Reason: Pain Stop: 02/10/18 13:48 Last Admin: 02/07/18 21:01 Dose: 15 mg Loperamide HCl (Imodium) 2 mg PO PRN PRN PRN Reason: Diarrhea/Loose Stools Loratadine (Claritin) 10 mg PO DAILYPRN PRN PRN Reason: Sinus Symptoms Magnesium Hydroxide (Milk Of Magnesium) 30 ml PO DAILYPRN PRN PRN Reason: Constipation Last Admin: 02/07/18 20:59 Dose: 30 ml Mineral Oil/White Petrolatum (Eucerin Cream) 0 gm TOP BIDPRN PRN PRN Reason: Dry Skin Morphine Sulfate (Morphine Sulfate) 4 mg SLOW IVP Q4H PRN PRN Reason: Severe Pain (7-10) Ondansetron HCl (Zofran Odt) 4 mg PO Q6H PRN PRN Reason: Nausea/Vomiting Ondansetron HCl (Zofran) 4 mg IVP Q6H PRN PRN Reason: Nausea/Vomiting Phenol (Chloraseptic [place] 180 Ml Bot) 0 ml PO PRN PRN PRN Reason: Sore Throat Saccharomyces Boulardii (Florastor) 250 mg PO DAILY [facility] Last Admin: 02/09/18 08:04 Dose: 250 mg Senna (Senokot) 2 tab PO HSPRN PRN PRN Reason: Constipation Sodium Chloride ([place] Nasal [place] 0.65%) 0 ml EA NARE QIDPRN PRN PRN Reason: Nasal Congestion Sodium Chloride (Flush - Normal Saline) 10 ml IVF Q12HR [facility] Last Admin: 02/09/18 08:04 Dose: 10 ml Sodium Chloride (Flush - Normal Saline) 10 ml IVF PRN PRN PRN Reason: Saline Flush Zolpidem Tartrate (Ambien) 5 mg PO HSPRN PRN PRN Reason: Insomnia
[2018-02-09 10:34] LABS: Vancomycin, Trough 15.2 ug/mL
[2018-02-09] MEDS: cefTRIAXone\\ROCEPHIN 2 GM in Sodium Chloride 0.9% 100 ML IVPB SCH (13:29)
[2018-02-10] MEDS: HYDROcodone/Acetaminophen 5/325 mg Tablet PO PRN ×2 (07:20→20:25)
--- NOTE | 2018-02-10 09:47 | PDOC.PN ---
- Subjective Encounter Start Date: 02/10/18 Encounter Start Time: 09:10 pt still has lot of pain with walking and increasing swelling on standing, no fever - Objective Resuscitation Status: Resuscitation Status FULL:Full Resuscitation MAR Reviewed: Yes Vital Signs & Weight: Vital Signs (12 hours) Temp Pulse Resp BP Pulse Ox 02/10/18 07:58 98.3 F 59 L 16 132/78 97 02/10/18 04:00 97.7 F 55 L 18 152/84 H 100 02/10/18 00:00 97.8 F 78 18 128/77 97 I&O: 02/09/18 02/10/18 02/11/18 06:59 06:59 06:59 Intake Total 3020 1920 Output Total 800 Balance 3020 1120 Result Diagrams: 02/08/18 09:01 02/08/18 09:01 Phys Exam - Physical Examination Constitutional: NAD HEENT: PERRLA, moist MMs, sclera anicteric Neck: no JVD, supple Respiratory: no wheezing, no rales, no rhonchi Cardiovascular: RRR, no significant murmur, no rub Gastrointestinal: soft, non-tender, no distention, positive bowel sounds Musculoskeletal: no edema, pulses present right leg celulitis with abscess Neurological: non-focal, normal sensation, moves all 4 limbs Lymphatic: no nodes Psychiatric: normal affect, A&O x 3 Skin: no rash, normal turgor Dx/Plan (1) Cellulitis of right leg Code(s): L03.115 - CELLULITIS OF RIGHT LOWER LIMB Status: Acute (2) Failure of outpatient treatment Code(s): Z78.9 - OTHER SPECIFIED HEALTH STATUS Status: Acute (3) Hypokalemia Code(s): E87.6 - HYPOKALEMIA Status: Acute (4) Sepsis affecting skin Code(s): A41.9 - SEPSIS, UNSPECIFIED ORGANISM Status: Acute - Plan cont current plan of care, plan discussed w/ family, continue antibiotics * I will consult ortho to give opinion regarding any need of I & D, as he still has not significant improvement with IV antibiotics * ID consulted * continue vancomycin and rocephin * discussed with family * pain control * medication reviewed as below * symptomatic treatment. Review of Systems - Review of Systems Constitutional: negative: fever, chills, sweats, weakness, malaise, other Eyes: negative: Pain, Vision Change, Conjunctivae Inflammation, Eyelid Inflammation, Redness, Other ENT: negative: Ear Pain, Ear Discharge, Nose Pain, Nose Discharge, Nose Congestion, Mouth Pain, Mouth Swelling, Throat Pain, Throat Swelling, Other Respiratory: negative: Cough, Dry, Shortness of Breath, Hemoptysis, SOB with Excertion, Pleuritic Pain, Sputum, Wheezing Cardiovascular: negative: chest pain, palpitations, orthopnea, paroxysmal nocturnal dyspnea, edema, light headedness, other Gastrointestinal: negative: Nausea, Vomiting, Abdominal Pain, Diarrhea, Constipation, Melena, Hematochezia, Other Genitourinary: negative: Dysuria, Frequency, Incontinence, Hematuria, Retention , Other Musculoskeletal: Leg Pain. negative: Neck Pain, Shoulder Pain, Arm Pain, Back Pain, Hand Pain, Foot Pain, Other - Medications/Allergies Allergies/Adverse Reactions: Allergies Allergy/AdvReac Type Severity Reaction Status Date / Time No Known Allergies Allergy Verified 02/07/18 08:25 Medications: Current Medications Acetaminophen (Tylenol) 650 mg PO Q4H PRN PRN Reason: Headache/Fever or Pain Hydrocodone Bitart/Acetaminophen ([place] 5/325) 1 tab PO Q4H PRN PRN Reason: Moderate Pain (4-6) Last Admin: 02/10/18 07:20 Dose: 1 tab Al Hydroxide/Mg Hydroxide (Maalox) 30 ml PO Q6H PRN PRN Reason: Heartburn or Indigestion Artificial Tears (Tears Renewed 15ml Bottle) 0 drop EA EYE PRN PRN PRN Reason: Dry Eyes Enoxaparin Sodium (Lovenox) 40 mg SC 0900 [facility] Last Admin: 02/09/18 08:04 Dose: 40 mg Famotidine (Pepcid) 20 mg PO BID [facility] Last Admin: 02/09/18 19:57 Dose: 20 mg Guaifenesin (Robitussin Sf) 200 mg PO Q4H PRN PRN Reason: Cough Hydralazine HCl (Apresoline) 10 mg SLOW IVP Q4H PRN PRN Reason: Systolic BP > 180 Ceftriaxone Sodium 2 gm/ (Sodium Chloride) 100 mls @ 200 mls/hr IVPB Q24HR [facility] Last Admin: 02/09/18 13:29 Dose: 100 mls Ketorolac Tromethamine (Toradol) 15 mg IVP Q6H PRN PRN Reason: Pain Stop: 02/10/18 13:48 Last Admin: 02/07/18 21:01 Dose: 15 mg Loperamide HCl (Imodium) 2 mg PO PRN PRN PRN Reason: Diarrhea/Loose Stools Loratadine (Claritin) 10 mg PO DAILYPRN PRN PRN Reason: Sinus Symptoms Magnesium Hydroxide (Milk Of Magnesium) 30 ml PO DAILYPRN PRN PRN Reason: Constipation Last Admin: 02/07/18 20:59 Dose: 30 ml Mineral Oil/White Petrolatum (Eucerin Cream) 0 gm TOP BIDPRN PRN PRN Reason: Dry Skin Morphine Sulfate (Morphine Sulfate) 4 mg SLOW IVP Q4H PRN PRN Reason: Severe Pain (7-10) Ondansetron HCl (Zofran Odt) 4 mg PO Q6H PRN PRN Reason: Nausea/Vomiting Ondansetron HCl (Zofran) 4 mg IVP Q6H PRN PRN Reason: Nausea/Vomiting Phenol (Chloraseptic [place] 180 Ml Bot) 0 ml PO PRN PRN PRN Reason: Sore Throat Saccharomyces Boulardii (Florastor) 250 mg PO DAILY [facility] Last Admin: 02/09/18 08:04 Dose: 250 mg Senna (Senokot) 2 tab PO HSPRN PRN PRN Reason: Constipation Sodium Chloride ([place] Nasal [place] 0.65%) 0 ml EA NARE QIDPRN PRN PRN Reason: Nasal Congestion Sodium Chloride (Flush - Normal Saline) 10 ml IVF Q12HR [facility] Last Admin: 02/09/18 19:58 Dose: 10 ml Sodium Chloride (Flush - Normal Saline) 10 ml IVF PRN PRN PRN Reason: Saline Flush Zolpidem Tartrate (Ambien) 5 mg PO HSPRN PRN PRN Reason: Insomnia
[2018-02-10] MEDS: Enoxaparin Sodium 40 MG/0.4 ML SYRINGE SC SCH (09:49)
[2018-02-10] MEDS: Famotidine 20 MG TAB PO SCH ×2 (09:50→20:29)
[2018-02-10] MEDS: Saccharomyces boulardii 250 MG CAP PO SCH (09:50)
[2018-02-10] MEDS: Ketorolac Tromethamine 30 MG/ML VIAL IVP PRN (09:57)
[2018-02-10] MEDS ORDERED: Gadobenate Dimeglumine 529 MG/1 ML (20ML VIAL) ONE (13:00)
[2018-02-10] MEDS: cefTRIAXone\\ROCEPHIN 2 GM in Sodium Chloride 0.9% 100 ML IVPB SCH (14:10)
--- NOTE | 2018-02-10 16:45 | MRI ---
MRI RIGHT FORELEG WITH AND WITHOUT CONTRAST: INDICATIONS: Redness and swelling around the medial right ankle. Concern for abscess. TECHNIQUE: Multiplanar, multisequence MR images were obtained of the right ankle and right foreleg with and with out IV contrast, and 20 mL of MultiHance was utilized for the exam. FINDINGS: There is a T2 hyperintense, T1 hypointense, peripherally enhancing fluid collection within the subcut aneous tissues, overlying the distal aspect of the medial right foreleg, consistent with a large absc ess. This measures approximately 3.9 x 7 cm in its greatest mediolateral and craniocaudal dimensions . There is increased enhancement and edema within the subcutaneous tissues of the medial right foreleg and ankle. Bone marrow signal intensity appears within normal limits. There is no overt evidence to suggest the presence of osteomyelitis. IMPRESSION: Cellulitis of the right foreleg with a subcutaneous abscess seen within the medial soft tissues of th e distal right foreleg, measuring approximately 3.9 x 7 cm. POS: [facility]
--- NOTE | 2018-02-10 17:52 | PRG ---
DATE OF SERVICE: 02/10/2018 SUBJECTIVE: Mr. Frank is still with quite a bit of pain when he puts his leg down, but in the rec umbent position with leg elevated, he feels comfortable. An MRI was performed and the results are di scussed below. PHYSICAL EXAMINATION: VITAL SIGNS: Essentially normal. LUNGS: Clear. HEART: S1, S2 regular rate. ABDOMEN: Soft. EXTREMITIES: The right leg with the area of bulge with much less erythema and less swelling as well. MRI shows what appears to be an area of abscess formation or fluid density in the subcutaneous tissue s in the medial aspect of the right ankle. The bone itself appears to be normal. This is my own galilea ding. I am waiting on the radiologist's interpretation. The white cell count is 6.5, hemoglobin 14, platelets 237. ASSESSMENT AND DISCUSSION: Recurrent episodes of cellulitis with venous insufficiency. At this time , there appears to be either area of seroma or an abscess in the medial aspect of the right ankle. P robably, he will need surgical debridement with cultures. Continue Niko.
--- NOTE | 2018-02-10 20:05 | CON ---
DATE OF CONSULTATION: 02/10/2018 REASON FOR CONSULTATION: Cellulitis and possible abscess. HISTORY OF PRESENT ILLNESS: Mr. Frank is a 47-year-old male who was admitted to the hospital appr oximately 4 days ago. He had swelling, pain, and redness of his right lower extremity. He had high fevers at the time of his admission. He was admitted with a diagnosis of cellulitis and started on i ntravenous antibiotics. He has improved somewhat with his erythema; however, he is having ongoing pa in in the leg. He has difficulty walking. He has difficulty with ankle motion. He seems to have a more focal site of infection. Orthopedics was consulted to evaluate for abscess formation. The inte rview is conducted through a synthetic staple extruder. REVIEW OF SYSTEMS: Positive for right leg pain, otherwise negative 10-point review of systems. PAST MEDICAL HISTORY: Negative prior to this admission. PAST SURGICAL HISTORY: Negative. PSYCHIATRIC HISTORY: Negative. SOCIAL HISTORY: The patient denies tobacco, alcohol, or drug use. FAMILY MEDICAL HISTORY: Negative. ALLERGIES: No drug allergies. PHYSICAL EXAMINATION: VITAL SIGNS: Temperature 98.1, pulse is 60, respiratory rate 16, oxygen saturation 96%, blood pressu re is 129/76. GENERAL: He is alert and oriented, sitting upright, in no apparent distress. RESPIRATORY: Breathing comfortably. ABDOMEN: Soft, nontender, nondistended. MUSCULOSKELETAL: The patient's right lower extremity has faint erythema. There is swelling present below the knee. He is tender to palpation over the medial tibial cortex. He has fluctuance and swel ling in the site of approximately 4 cm. There is tenderness to palpation. He is able to flex and ex tend the ankle with no ankle effusion. He has palpable dorsalis pedis pulse. Sensation intact in th e dorsal and plantar foot. IMAGES: X-rays of the tibia and foot demonstrate soft tissue swelling. There is no bony erosion or disruption of the tibial cortex. ASSESSMENT: Cellulitis of the right lower extremity, now with abscess formation. PLAN: At this point, I think the patient would benefit from MRI evaluation to ensure that he has sim ply a focal abscess and no deeper tendon involvement or osteomyelitis. We will obtain this tonight. He should be n.p.o. at midnight. I will plan for irrigation and debridement of the abscess tomorrow . Hopefully, this is a simple I&D of a superficial abscess and he can continue antibiotics and wound care with packing postoperatively. I have described this plan with him through a synthetic staple extruder. He is aware and wants to proceed.
[2018-02-11] MEDS: Ketorolac Tromethamine 30 MG/ML VIAL IVP PRN ×3 (03:09→20:30)
[2018-02-11] MEDS: Enoxaparin Sodium 40 MG/0.4 ML SYRINGE SC SCH (10:09)
[2018-02-11] MEDS: Saccharomyces boulardii 250 MG CAP PO SCH (10:10)
[2018-02-11] MEDS: Famotidine 20 MG TAB PO SCH ×2 (10:10→20:33)
[2018-02-11] MEDS ORDERED: Fentanyl 100 MCG/2 ML VIAL ONE (10:45)
[2018-02-11] MEDS ORDERED: Neomycin-Polymyxin 1 ML AMP ONE (10:46)
--- NOTE | 2018-02-11 11:17 | PDOC.PN ---
- Subjective Encounter Start Date: 02/11/18 Encounter Start Time: 09:00 Patient seen and examined. No new complaints. No overnight events - Objective Resuscitation Status: Resuscitation Status FULL:Full Resuscitation MAR Reviewed: Yes Vital Signs & Weight: Vital Signs (12 hours) Temp Pulse Resp BP Pulse Ox 02/11/18 07:57 97.6 F 53 L 16 121/74 98 02/11/18 05:44 97.8 F 57 L 20 102/67 97 02/11/18 00:00 97.4 F L 65 20 110/68 98 I&O: 02/10/18 02/11/18 02/12/18 06:59 06:59 06:59 Intake Total 1920 1050 Output Total 800 Balance 1120 1050 Result Diagrams: 02/08/18 09:01 02/08/18 09:01 Radiology Reviewed by me: Yes (mri leg) Phys Exam - Physical Examination Constitutional: NAD HEENT: PERRLA, moist MMs, sclera anicteric Neck: no JVD, supple Respiratory: no wheezing, no rales, no rhonchi Cardiovascular: RRR, no significant murmur, no rub Gastrointestinal: soft, non-tender, no distention, positive bowel sounds Musculoskeletal: pulses present right leg cellulitis and abscess Neurological: non-focal, normal sensation, moves all 4 limbs Psychiatric: normal affect, A&O x 3 Skin: no rash, normal turgor Dx/Plan (1) Cellulitis of right leg Code(s): L03.115 - CELLULITIS OF RIGHT LOWER LIMB Status: Acute (2) Failure of outpatient treatment Code(s): Z78.9 - OTHER SPECIFIED HEALTH STATUS Status: Acute (3) Hypokalemia Code(s): E87.6 - HYPOKALEMIA Status: Acute (4) Sepsis affecting skin Code(s): A41.9 - SEPSIS, UNSPECIFIED ORGANISM Status: Acute - Plan cont current plan of care, plan discussed w/ family, continue antibiotics * today I & D * medication reviewed as below * symptomatic treatment. * continue IV antibiotics Review of Systems - Review of Systems ENT: negative: Ear Pain, Ear Discharge, Nose Pain, Nose Discharge, Nose Congestion, Mouth Pain, Mouth Swelling, Throat Pain, Throat Swelling, Other Respiratory: negative: Cough, Dry, Shortness of Breath, Hemoptysis, SOB with Excertion, Pleuritic Pain, Sputum, Wheezing Cardiovascular: negative: chest pain, palpitations, orthopnea, paroxysmal nocturnal dyspnea, edema, light headedness, other Gastrointestinal: negative: Nausea, Vomiting, Abdominal Pain, Diarrhea, Constipation, Melena, Hematochezia, Other Genitourinary: negative: Dysuria, Frequency, Incontinence, Hematuria, Retention , Other Musculoskeletal: Leg Pain. negative: Neck Pain, Shoulder Pain, Arm Pain, Back Pain, Hand Pain, Foot Pain, Other Skin: negative: Rash, Lesions, Guzman, Bruising, Other - Medications/Allergies Allergies/Adverse Reactions: Allergies Allergy/AdvReac Type Severity Reaction Status Date / Time No Known Allergies Allergy Verified 02/07/18 08:25 Medications: Current Medications Acetaminophen (Tylenol) 650 mg PO Q4H PRN PRN Reason: Headache/Fever or Pain Hydrocodone Bitart/Acetaminophen ([place] 5/325) 1 tab PO Q4H PRN PRN Reason: Moderate Pain (4-6) Last Admin: 02/10/18 20:25 Dose: 1 tab Al Hydroxide/Mg Hydroxide (Maalox) 30 ml PO Q6H PRN PRN Reason: Heartburn or Indigestion Artificial Tears (Tears Renewed 15ml Bottle) 0 drop EA EYE PRN PRN PRN Reason: Dry Eyes Enoxaparin Sodium (Lovenox) 40 mg SC 0900 [facility] Last Admin: 02/11/18 10:09 Dose: Not Given Famotidine (Pepcid) 20 mg PO BID [facility] Last Admin: 02/11/18 10:10 Dose: Not Given Guaifenesin (Robitussin Sf) 200 mg PO Q4H PRN PRN Reason: Cough Hydralazine HCl (Apresoline) 10 mg SLOW IVP Q4H PRN PRN Reason: Systolic BP > 180 Ceftriaxone Sodium 2 gm/ (Sodium Chloride) 100 mls @ 200 mls/hr IVPB Q24HR [facility] Last Admin: 02/10/18 14:10 Dose: 100 mls Ketorolac Tromethamine (Toradol) 15 mg IVP Q6H PRN PRN Reason: Pain Stop: 02/12/18 03:01 Last Admin: 02/11/18 03:09 Dose: 15 mg Loperamide HCl (Imodium) 2 mg PO PRN PRN PRN Reason: Diarrhea/Loose Stools Loratadine (Claritin) 10 mg PO DAILYPRN PRN PRN Reason: Sinus Symptoms Magnesium Hydroxide (Milk Of Magnesium) 30 ml PO DAILYPRN PRN PRN Reason: Constipation Last Admin: 02/07/18 20:59 Dose: 30 ml Mineral Oil/White Petrolatum (Eucerin Cream) 0 gm TOP BIDPRN PRN PRN Reason: Dry Skin Morphine Sulfate (Morphine Sulfate) 4 mg SLOW IVP Q4H PRN PRN Reason: Severe Pain (7-10) Ondansetron HCl (Zofran Odt) 4 mg PO Q6H PRN PRN Reason: Nausea/Vomiting Ondansetron HCl (Zofran) 4 mg IVP Q6H PRN PRN Reason: Nausea/Vomiting Phenol (Chloraseptic [place] 180 Ml Bot) 0 ml PO PRN PRN PRN Reason: Sore Throat Saccharomyces Boulardii (Florastor) 250 mg PO DAILY [facility] Last Admin: 02/11/18 10:10 Dose: Not Given Senna (Senokot) 2 tab PO HSPRN PRN PRN Reason: Constipation Sodium Chloride ([place] Nasal [place] 0.65%) 0 ml EA NARE QIDPRN PRN PRN Reason: Nasal Congestion Sodium Chloride (Flush - Normal Saline) 10 ml IVF Q12HR [facility] Last Admin: 02/10/18 20:29 Dose: 10 ml Sodium Chloride (Flush - Normal Saline) 10 ml IVF PRN PRN PRN Reason: Saline Flush Zolpidem Tartrate (Ambien) 5 mg PO HSPRN PRN PRN Reason: Insomnia
--- NOTE | 2018-02-11 12:05 | OP ---
DATE OF PROCEDURE: 02/11/2018 OPERATION: Irrigation and debridement of right lower extremity abscess. PREOPERATIVE DIAGNOSIS: Cellulitis with abscess development right lower extremity. POSTOPERATIVE DIAGNOSIS: Cellulitis with abscess development right lower extremity. ESTIMATED BLOOD LOSS: None. IMPLANTS: None. SURGEON: Dillan Cisneros M.D. INDICATIONS: Mr. Frank is a 47-year-old male who was admitted earlier in the week with cellulitis . He has been treated with intravenous antibiotics. He has improved; however, he developed a focal area of erythema and ongoing pain. MRI showed an abscess. He was indicated for irrigation and debri laney to hopefully assist in eradication of infection. Risks have been reviewed. He elected to pro ceed. DESCRIPTION OF PROCEDURE: Mr. Frank was identified in the preoperative holding area. His correct extremity was marked. He was carried to the operating room. He was positioned supine. General ane sthesia was induced. A multidisciplinary timeout was performed. The right lower extremity was prepp ed and draped in sterile fashion. At this point, we made 4 cm incision over the fluctuant area over the anteromedial tibial crest. We dissected down through the subcutaneous tissues and entered in the abscess. There was gross purulenc e. This was evacuated. We thoroughly irrigated with copious lavage. We then used a curet as well a s a knife to perform an excisional debridement of the infected tissues. At this point, we loosely cl osed and then packed the wound with iodoform gauze. A sterile dressing was applied. The patient was taken to the recovery room in good condition without complication.
[2018-02-11] MEDS ORDERED: PROPOFOL 200 MG/20 ML VIAL ONE (13:16)
[2018-02-11] MEDS ORDERED: Lidocaine 1% PF 5 ML VIAL ONE (13:16)
[2018-02-11] MEDS: cefTRIAXone\\ROCEPHIN 2 GM in Sodium Chloride 0.9% 100 ML IVPB SCH (14:20)
[2018-02-12] MEDS: HYDROcodone/Acetaminophen 5/325 mg Tablet PO PRN ×2 (05:18→08:07)
[2018-02-12 08:00] VITALS: BP 112/71; TEMP 98.1
[2018-02-12] MEDS: Saccharomyces boulardii 250 MG CAP PO SCH (08:05)
[2018-02-12] MEDS: Enoxaparin Sodium 40 MG/0.4 ML SYRINGE SC SCH (08:05)
[2018-02-12] MEDS: Famotidine 20 MG TAB PO SCH (08:05)
--- NOTE | 2018-02-12 10:57 | PDOC.PN ---
- Subjective Encounter Start Date: 02/12/18 Encounter Start Time: 09:10 Patient seen and examined for right leg cellulitis. No new complaints. No overnight events - Objective Resuscitation Status: Resuscitation Status FULL:Full Resuscitation MAR Reviewed: Yes Vital Signs & Weight: Vital Signs (12 hours) Temp Pulse Resp BP BP Pulse Ox 02/12/18 08:00 98.1 F 70 16 97 02/12/18 07:58 98.1 F 70 16 112/71 98 02/12/18 00:00 98.6 F 72 20 105/66 96 Weight Admit Weight 202 lb 6.4 oz Weight 202 lb 6.4 oz I&O: 02/11/18 02/12/18 02/13/18 06:59 06:59 06:59 Intake Total 1050 360 Balance 1050 360 Result Diagrams: 02/08/18 09:01 02/08/18 09:01 Phys Exam - Physical Examination Constitutional: NAD HEENT: PERRLA, moist MMs, sclera anicteric Neck: no JVD, supple Respiratory: no wheezing, no rales, no rhonchi Cardiovascular: RRR, no significant murmur, no rub Gastrointestinal: soft, non-tender, no distention, positive bowel sounds Musculoskeletal: no edema, pulses present leg with dressing Neurological: non-focal, normal sensation, moves all 4 limbs Psychiatric: normal affect, A&O x 3 Skin: no rash, normal turgor Dx/Plan (1) Cellulitis of right leg Code(s): L03.115 - CELLULITIS OF RIGHT LOWER LIMB Status: Acute (2) Failure of outpatient treatment Code(s): Z78.9 - OTHER SPECIFIED HEALTH STATUS Status: Acute (3) Hypokalemia Code(s): E87.6 - HYPOKALEMIA Status: Acute (4) Sepsis affecting skin Code(s): A41.9 - SEPSIS, UNSPECIFIED ORGANISM Status: Acute - Plan cont current plan of care, plan discussed w/ family, continue antibiotics * wound culture is grew streptoccoccus and pansensitive * will give T3 and keflex on discharge * pt and family to learn about wound care * if ortho ok, will consider discharge any time. * medication reviewed as below * symptomatic treatment Review of Systems - Review of Systems Eyes: negative: Pain, Vision Change, Conjunctivae Inflammation, Eyelid Inflammation, Redness, Other ENT: negative: Ear Pain, Ear Discharge, Nose Pain, Nose Discharge, Nose Congestion, Mouth Pain, Mouth Swelling, Throat Pain, Throat Swelling, Other Respiratory: negative: Cough, Dry, Shortness of Breath, Hemoptysis, SOB with Excertion, Pleuritic Pain, Sputum, Wheezing Cardiovascular: negative: chest pain, palpitations, orthopnea, paroxysmal nocturnal dyspnea, edema, light headedness, other Gastrointestinal: negative: Nausea, Vomiting, Abdominal Pain, Diarrhea, Constipation, Melena, Hematochezia, Other Genitourinary: negative: Dysuria, Frequency, Incontinence, Hematuria, Retention , Other Musculoskeletal: Leg Pain. negative: Neck Pain, Shoulder Pain, Arm Pain, Back Pain, Hand Pain, Foot Pain, Other - Medications/Allergies Allergies/Adverse Reactions: Allergies Allergy/AdvReac Type Severity Reaction Status Date / Time No Known Allergies Allergy Verified 02/07/18 08:25 Medications: Current Medications Acetaminophen (Tylenol) 650 mg PO Q4H PRN PRN Reason: Headache/Fever or Pain Hydrocodone Bitart/Acetaminophen ([place] 5/325) 1 tab PO Q4H PRN PRN Reason: Moderate Pain (4-6) Last Admin: 02/12/18 08:07 Dose: 1 tab Al Hydroxide/Mg Hydroxide (Maalox) 30 ml PO Q6H PRN PRN Reason: Heartburn or Indigestion Artificial Tears (Tears Renewed 15ml Bottle) 0 drop EA EYE PRN PRN PRN Reason: Dry Eyes Enoxaparin Sodium (Lovenox) 40 mg SC 0900 [facility] Last Admin: 02/12/18 08:05 Dose: 40 mg Famotidine (Pepcid) 20 mg PO BID [facility] Last Admin: 02/12/18 08:05 Dose: 20 mg Guaifenesin (Robitussin Sf) 200 mg PO Q4H PRN PRN Reason: Cough Hydralazine HCl (Apresoline) 10 mg SLOW IVP Q4H PRN PRN Reason: Systolic BP > 180 Ceftriaxone Sodium 2 gm/ (Sodium Chloride) 100 mls @ 200 mls/hr IVPB Q24HR [facility] Last Admin: 02/11/18 14:20 Dose: 100 mls Loperamide HCl (Imodium) 2 mg PO PRN PRN PRN Reason: Diarrhea/Loose Stools Loratadine (Claritin) 10 mg PO DAILYPRN PRN PRN Reason: Sinus Symptoms Magnesium Hydroxide (Milk Of Magnesium) 30 ml PO DAILYPRN PRN PRN Reason: Constipation Last Admin: 02/07/18 20:59 Dose: 30 ml Mineral Oil/White Petrolatum (Eucerin Cream) 0 gm TOP BIDPRN PRN PRN Reason: Dry Skin Morphine Sulfate (Morphine Sulfate) 4 mg SLOW IVP Q4H PRN PRN Reason: Severe Pain (7-10) Ondansetron HCl (Zofran Odt) 4 mg PO Q6H PRN PRN Reason: Nausea/Vomiting Ondansetron HCl (Zofran) 4 mg IVP Q6H PRN PRN Reason: Nausea/Vomiting Phenol (Chloraseptic Kramer 180 Ml Bot) 0 ml PO PRN PRN PRN Reason: Sore Throat Saccharomyces Boulardii (Florastor) 250 mg PO DAILY [facility] Last Admin: 02/12/18 08:05 Dose: 250 mg Senna (Senokot) 2 tab PO HSPRN PRN PRN Reason: Constipation Sodium Chloride ([place] Nasal Kramer 0.65%) 0 ml EA NARE QIDPRN PRN PRN Reason: Nasal Congestion Sodium Chloride (Flush - Normal Saline) 10 ml IVF Q12HR [facility] Last Admin: 02/12/18 08:10 Dose: 10 ml Sodium Chloride (Flush - Normal Saline) 10 ml IVF PRN PRN PRN Reason: Saline Flush Zolpidem Tartrate (Ambien) 5 mg PO HSPRN PRN PRN Reason: Insomnia
--- NOTE | 2018-02-12 13:33 | DIS ---
DATE OF ADMISSION: 02/05/2018 DATE OF DISCHARGE: 02/12/2018 PRIMARY CARE PHYSICIAN: [facility]. DISCHARGE DISPOSITION: Home. PRIMARY DISCHARGE DIAGNOSES: 1. Cellulitis with abscess of right lower extremity, failure of outpatient therapy. 2. Hypokalemia. 3. Sepsis due to problem cellulitis. SECONDARY DISCHARGE DIAGNOSIS: None. PRIMARY PROCEDURE/OPERATION: Incision and debridement was performed by Dr. Dillan Cisneros on 02/11/2018. RADIOLOGICAL INVESTIGATION: Ultrasound was negative for any DVT. MRI of lower extremities showed abscess underneath of skin in the right lower extremity. SIGNIFICANT LABORATORY DATA: WBC 6.5, hemoglobin 14.1, platelet 237. Sodium 137, potassium 4.0, BUN 9, creatinine 0.82, calcium 9.0. CRP 6.56. LFT normal. Blood culture negative. Wound culture grew Streptococcus group G. DISCHARGE MEDICATIONS: Keflex 500 mg p.o. t.i.d. for another 10 days, Tylenol # 3 two tablets q.6 hourly p.r.n. CONTRAINDICATIONS: None. CODE STATUS: FULL CODE. INPATIENT CONSULTANTS: Dr. Egan was consulted while in hospital. Dr. Dillan Cisneros was consulted for abscess who did I&D. TEST RESULTS PENDING ON DISCHARGE: None. ALLERGIES: No known drug allergy. DISCHARGE PLAN: Post hospital, the patient will follow up with primary care physician, Dr. Dillan Cisneros and Dr. Egan as instructed. HOSPITAL COURSE: A 47-year-old male with above-mentioned medical problem who was admitted by me on 02/05/2018. Please see my HPI for further details. The patient was having cellulitis of right lower extremity with erythema, swelling, and tenderness. He was having day by day symptoms were getting worse. He was given oral antibiotic therapy as an outpatient basis, but he did not see any improvement. When he arrived to the ER, he was meeting sepsis criteria. He was admitted to medical floor. He was treated with vancomycin and Rocephin. We were initially trying to continue with antibiotic therapy. Initially, he was not needing surgery because there was no abscess but his abscess developed later on, required General Surgery consultation. Dr. Egan was also consulted. We did a lower extremity MRI and that showed an abscess and that is why Dr. Dillan Cisneros did I&D. After I&D, the patient was feeling much better. His pain is significantly reduced. He and his son learn how to do dressing at home. All new medication prescriptions given to him. The patient is seen and examined at bedside today. Plan of care discussed with the family member. Total time spent on discharge day 31 minutes. NARGIS
[2018-02-12] MEDS: cefTRIAXone\\ROCEPHIN 2 GM in Sodium Chloride 0.9% 100 ML IVPB SCH (13:56)
== END 2018-02-12 15:43 | disposition home or self-care (01) | DRG 854 ==
LOC: ERS 10:21 → T4-B 13:39
PROVIDERS: ADMIT Internal Medicine; ATTEND Internal Medicine
PROC: 0J9N0ZZ Drainage of Right Lower Leg Subcutaneous Tissue and Fascia, Open Approach (ICD-10-PCS; principal; 2018-02-11)
DX: A41.9 Sepsis, unspecified organism (principal); L03.115 Cellulitis of right lower limb; I87.2 Venous insufficiency (chronic) (peripheral); E87.6 Hypokalemia; Z79.2 Long term (current) use of antibiotics
CPT/HCPCS: 36415; 80048; 80053; 80202; 83605; 85025; 86140; 87040; 87070; 87077; 87205; 93005; 96365; 96368; 96375; A4216; A9579; J0696; J1650; J1885; J2270; J2543; J3010; J3370; J3490; J7050; Q0162

== ENCOUNTER 2020-09-21 20:34 | Inpatient (IN) | payer OTHER, SELFPAY ==
[2020-09-21] MEDS ORDERED: Albuterol 200 PUFF (6.7GM INHALER) ONE (21:04)
[2020-09-21 21:14] LABS: #Lymphocytes 0.8 thou/uL (1.20-3.40); #Monocytes 0.4 thou/uL (0.11-0.59); #Neutrophils 5.4 thou/uL (1.40-6.50); %Basophils 0.3 % (0.0-1.0); %Eosinophils 0.2 % (0.0-10.0); %Lymphocytes 11.9 % (21.0-51.0); %Monocytes 5.3 % (0.0-10.0); %Neutrophils 82.3 % (42.0-75.0); Hemoglobin 16.1 g/dL (14.0-18.0); Mean Corpuscular HGB CONC 35.4 g/dL (32.0-36.0); Mean Corpuscular Hemoglobin 31.8 pg (27.0-31.0); Mean Corpuscular Volume 89.7 fL (78.0-98.0); Mean Platelet Volume 7.6 fL (7.4-10.4); Platelet Count 167 thou/uL (130-400); Red Blood Cell (RBC) Count 5.08 mill/uL (4.70-6.10); White Blood Cell (WBC) Count 6.5 thou/uL (4.8-10.8)
[2020-09-21] MEDS ORDERED: Ondansetron PF 4 MG/2 ML Vial ONE (21:14)
[2020-09-21] MEDS ORDERED: Acetaminophen 500 MG TAB ONE (21:14)
--- NOTE | 2020-09-21 21:23 | RAD ---
EXAM: CHEST ONE VIEW HISTORY: Dyspnea. Covid positive. COMPARISON: None FINDINGS: Cardiac silhouette is within normal limits. There are increased interstitial and patchy parenchymal a irspace and groundglass opacities throughout the lungs bilaterally in a pattern which can be seen with Covid pneumonia. No pleural effusion is seen. No pneumothorax is seen. The osseous structures ar e intact. IMPRESSION: Radiographic findings which can be seen with Covid pneumonia.
[2020-09-21 21:37] LABS: ALT (SGPT) 37 U/L (8-55); AST (SGOT) 55 U/L (5-34); Albumin 3.7 g/dL (3.5-5.0); Alkaline Phosphatase 71 U/L (40-110); Anion Gap 14 mmol/L (10-20); BUN (Urea Nitrogen) 13 mg/dL (8.4-25.7); Calc. Creatinine Clearance 0 mL/min (70-130); Calcium 8.4 mg/dL (7.8-10.44); Carbon Dioxide 20 mmol/L (22-29); Chloride 100 mmol/L (98-107); Globulin 3.7 g/dL (2.4-3.5); Glucose 118 mg/dL (70-105); Potassium 4.2 mmol/L (3.5-5.1); Protein, Total 7.4 g/dL (6.0-8.3); Sodium 130 mmol/L (136-145)
[2020-09-21] MEDS ORDERED: Ketorolac Tromethamine 30 MG/ML VIAL ONE (22:24)
[2020-09-22 00:52] LABS: CKMB 0.6 ng/mL (0-6.6)
[2020-09-22] MEDS ORDERED: Aspirin Chewable 81 MG TAB ONE (01:22)
[2020-09-22 03:08] VITALS: BMI 30.7
[2020-09-22 03:18] LABS: Troponin I 0.026 ng/mL (< 0.028)
[2020-09-22] MEDS ORDERED: Ondansetron PF 4 MG/2 ML Vial IVP PRN (04:00)
[2020-09-22] MEDS ORDERED: Ondansetron ODT 4 MG TAB SL PRN (04:00)
[2020-09-22] MEDS: Sodium Chloride 0.9% 1,000 ML IV SCH ×2 (06:17→14:18)
[2020-09-22] MEDS: Acetaminophen 325 MG TAB PO PRN ×4 (06:25→20:32)
--- NOTE | 2020-09-22 07:52 | CT ---
PRELIMINARY REPORT/[facility]/EMERGENCY AFTER HOURS PROCEDURE: HISTORY: 49-year-old male patient presents to ER with complaint of fever, body aches, chills, cough, shortness of breath for the last 2 days. The patient was diagnosed with COVID-19 9 days ago and repo rts that he recently started feeling worse. CT PULMONARY ANGIOGRAM COMPARISON: None. LIMITATIONS: Respiratory motion present. PULMONARY VESSELS: Respiratory motion limits evaluation of the segmental and subsegmental pulmonary arteries bilaterally. No evidence of PE in the central pulmonary arteries. TRACHEA/BRONCHI: Normal. LUNGS: Multifocal consolidations and groundglass opacities bilaterally, mainly peripherally located. Scattered parenchymal bands suggests scarring. PLEURA: Normal. No pleural effusion or pneumothorax. MEDIASTINUM/HILUM: No significant lymphadenopathy. HEART: No cardiomegaly. No significant pericardial effusion. AORTA/GREAT VESSELS: No aneurysm or dissection. ESOPHAGUS: Normal. CHEST WALL: Normal. BONES: No acute abnormality. SUB-DIAPHRAGM: Normal. IMPRESSION: No evidence of PE in the central pulmonary arteries. Limited evaluation of the segmental and subsegm ental pulmonary arteries. Consolidations and groundglass opacities bilaterally, likely multifocal pneumonia. High confidence f eatures of peak stage COVID-19, although other processes can cause a similar pattern. ELECTRONICALLY SIGNED BY: Estela Reyes M.D. Sep 22, 2020 12:30:20 AM ELECTRON MICROPROBE OPERATOR This report is intended for review by the ordering physician only, in accordance of law. If you recei ve this report in error, please call [facility] at [phone]. FINAL REPORT CTA CHEST: No evidence of proximal pulmonary embolus. Patchy peripheral ground-glass infiltrates throughout both lungs consistent with COVID pneumonia. I am in agreement with the preliminary report. POS: AGW
[2020-09-22] MEDS ORDERED: Bisacodyl 5 MG TAB PO PRN (11:33)
[2020-09-22] MEDS ORDERED: Ascorbic Acid 500 mg Chewable Tablet PO SCH (12:00)
[2020-09-22] MEDS ORDERED: Zinc Sulfate 220 MG CAP PO SCH (12:00)
--- NOTE | 2020-09-22 12:02 | PDOC.HHP ---
Hospitalist HPI Shortness of breath History of Present Illness: Patient is a pleasant 13-year-old gentleman who was seen on September 22, 2020. He presented to the emergency room complaining of fever, chills, body aches, cough and shortness of breath for the last 2 days. He reports that he was diagnosed with COVID-19 9 days ago. He was doing well initially, only recently started feeling worse. He denies chest pain, nausea, vomiting, diarrhea, abdominal pain or loss of smell or taste. He mainly presented to the emergency room because his symptoms have been getting worse. ED Course: BP: 106/66, Pulse: 77, Resp: 20, Temp: 98.2 (Oral), Pain: 5, O2 sat: 96 on (Room Air), Time: 09/22/2020 02:21. Allergies/Adverse Reactions: Allergy/AdvReac Type Severity Reaction Status Date / Time No Known Allergies Allergy Verified 09/22/20 03:28 Home Medications: Medication Instructions Recorded Confirmed Type No Known 09/22/20 09/22/20 History Past History: Past medical history: None Surgical history: None Social history: Patient denies tobacco use, alcohol use or recreational drug use Family history: Patient denies any family history of premature coronary artery disease. Hospitalist HPI MENDEZ Constitutional: reports: fever, chills Respiratory: reports: cough, shortness of breath Gastrointestinal: denies: nausea, vomiting, abdominal pain, diarrhea, constipation, melena, hematochezia All other systems reviewed; all pertinent +/- noted in HPI/Subj Hospitalist Exam Vitals: Vital Signs (12 hours) Temp Pulse Resp BP Pulse Ox 09/22/20 07:42 98.9 F 90 32 H 119/67 94 L 09/22/20 03:06 97.9 F 80 30 H 123/80 96 Weight Weight 208 lb General Appearance: awake alert General - other findings: Obese Eye: anicteric sclera ENT: normocephalic atraumatic Neck: supple, no JVD, no thyromegaly, no lymphadenopathy Heart: RRR, no gallops, no rubs, normal peripheral pulses Respiratory: no wheezes, no ronchi, normal chest expansion, rhonchi Gastrointestinal: soft, non-tender, non-distended, normal bowel sounds Skin: no rashes Musculoskeletal: no muscle wasting Psychiatric: normal affect, normal behavior, A&O x 3 Hospitalist Results Result Diagrams: 09/21/20 21:04 09/21/20 21:04 Lab results: Laboratory Last Values WBC 6.5 thou/uL (4.8-10.8) 09/21/20 21:04 RBC 5.08 mill/uL (4.70-6.10) 09/21/20 21:04 Hgb 16.1 g/dL (14.0-18.0) 09/21/20 21:04 Hct 45.5 % (42.0-52.0) 09/21/20 21:04 MCV 89.7 fL (78.0-98.0) 09/21/20 21:04 MCH 31.8 pg (27.0-31.0) H 09/21/20 21:04 MCHC 35.4 g/dL (32.0-36.0) 09/21/20 21:04 RDW 13.0 % (11.5-14.5) 09/21/20 21:04 Plt Count 167 thou/uL (130-400) 09/21/20 21:04 MPV 7.6 fL (7.4-10.4) 09/21/20 21:04 Neutrophils % 82.3 % (42.0-75.0) H 09/21/20 21:04 Lymphocytes % 11.9 % (21.0-51.0) L 09/21/20 21:04 Monocytes % 5.3 % (0.0-10.0) 09/21/20 21:04 Eosinophils % 0.2 % (0.0-10.0) 09/21/20 21:04 Basophils % 0.3 % (0.0-1.0) 09/21/20 21:04 Neutrophils # 5.4 thou/uL (1.40-6.50) 09/21/20 21:04 Lymphocytes # 0.8 thou/uL (1.20-3.40) L 09/21/20 21:04 Monocytes # 0.4 thou/uL (0.11-0.59) 09/21/20 21:04 Eosinophils # 0.0 thou/uL (0.0-0.7) 09/21/20 21:04 Basophils # 0.0 thou/uL (0.0-0.2) 09/21/20 21:04 D-Dimer 0.50 *mcg/mL (0.27-0.43) H 09/21/20 23:59 Sodium 130 mmol/L (136-145) L 09/21/20 21:04 Potassium 4.2 mmol/L (3.5-5.1) 09/21/20 21:04 Chloride 100 mmol/L (98-107) 09/21/20 21:04 Carbon Dioxide 20 mmol/L (22-29) L 09/21/20 21:04 Anion Gap 14 mmol/L (10-20) 09/21/20 21:04 BUN 13 mg/dL (8.4-25.7) 09/21/20 21:04 Creatinine 0.92 mg/dL (0.7-1.3) 09/21/20 21:04 Estimated GFR (MDRD) 87 09/21/20 21:04 Glucose 118 mg/dL (70-105) H 09/21/20 21:04 Calcium 8.4 mg/dL (7.8-10.44) 09/21/20 21:04 Total Bilirubin 1.0 mg/dL (0.2-1.2) 09/21/20 21:04 AST 55 U/L (5-34) H 09/21/20 21:04 ALT 37 U/L (8-55) 09/21/20 21:04 Alkaline Phosphatase 71 U/L (40-110) 09/21/20 21:04 Creatine Kinase 230 U/L (30-200) H 09/21/20 23:59 CK-MB (CK-2) 0.6 ng/mL (0-6.6) 09/21/20 23:59 Troponin I 0.030 ng/mL (< 0.028) H 09/22/20 06:27 Serum Total Protein 7.4 g/dL (6.0-8.3) 09/21/20 21:04 Albumin 3.7 g/dL (3.5-5.0) 09/21/20 21:04 Globulin 3.7 g/dL (2.4-3.5) H 09/21/20 21:04 Albumin/Globulin Ratio 1.0 g/dL (1.2-2.2) L 09/21/20 21:04 EKG Status: image reviewed by me Additional Comments: Normal sinus rhythm Chest x-ray Status: image reviewed by me (EXAM: CHEST ONE VIEW HISTORY: Dyspnea. Covid positive. COMPARISON: None) Additional Comments: EXAM: CHEST ONE VIEW HISTORY: Dyspnea. Covid positive. COMPARISON: None FINDINGS: Cardiac silhouette is within normal limits. There are increased interstitial and patchy parenchymal a irspace and groundglass opacities throughout the lungs bilaterally in a pattern which can be seen with Covid pneumonia. No pleural effusion is seen. No pneumothorax is seen. The osseous structures ar e intact. IMPRESSION: Radiographic findings which can be seen with Covid pneumonia. Hospitalist H&P A/P (1) COVID-19 virus infection Code(s): U07.1 - COVID-19 Status: Acute (2) Hyponatremia Code(s): E87.1 - HYPO-OSMOLALITY AND HYPONATREMIA Status: Acute (3) Elevated troponin Code(s): R77.8 - OTHER SPECIFIED ABNORMALITIES OF PLASMA PROTEINS Status: Acute (4) Elevated d-dimer Code(s): R79.89 - OTHER SPECIFIED ABNORMAL FINDINGS OF BLOOD CHEMISTRY Status: Acute Plan: Patient is currently not hypoxic. If he becomes hypoxic, he may qualify for remdesivir and steroids. Supportive management at this time, will give vitamin C and zinc. Troponin elevation likely secondary to demand ischemia from COVID-19 infection. Mildly elevated D-dimer likely secondary to COVID-19 infection. We will follow inflammatory markers. Many thanks for allowing me to participate in your patient's care. Please feel free to contact me with any questions or concerns. Level of risk: High Level of complexity: High Estimated length of stay in the hospital: Greater than 2 midnights
[2020-09-22] MEDS ORDERED: REMDESIVIR (EUA) 200 MG in Sodium Chloride 0.9% 250 ML 210 ML IV SCH (15:15)
[2020-09-22] MEDS: Guaifenesin DM 100-10/5 ML UDCUP PO PRN (15:57)
[2020-09-22] MEDS: Ondansetron PF 4 MG/2 ML Vial IVP PRN (15:58)
[2020-09-22] MEDS ORDERED: FLU VACC QS2020-21(6MOS UP)/PF 60 MCG/0.5 ML SYRINGE IM ONE (21:00)
[2020-09-23] MEDS: Acetaminophen 325 MG TAB PO PRN ×4 (01:02→20:10)
[2020-09-23] MEDS: Guaifenesin DM 100-10/5 ML UDCUP PO PRN ×4 (01:17→20:09)
[2020-09-23 05:19] LABS: #Lymphocytes 1.1 thou/uL (1.20-3.40); #Monocytes 0.4 thou/uL (0.11-0.59); #Neutrophils 6.2 thou/uL (1.40-6.50); %Eosinophils 0.1 % (0.0-10.0); %Lymphocytes 13.8 % (21.0-51.0); %Monocytes 4.8 % (0.0-10.0); %Neutrophils 81.4 % (42.0-75.0); Hemoglobin 14.8 g/dL (14.0-18.0); Mean Corpuscular HGB CONC 35.2 g/dL (32.0-36.0); Mean Corpuscular Hemoglobin 31.6 pg (27.0-31.0); Mean Corpuscular Volume 89.8 fL (78.0-98.0); Mean Platelet Volume 8.2 fL (7.4-10.4); Platelet Count 175 thou/uL (130-400); RBC Distribution Width 13.3 % (11.5-14.5); White Blood Cell (WBC) Count 7.6 thou/uL (4.8-10.8)
[2020-09-23 05:31] LABS: Anion Gap 15 mmol/L (10-20); BUN (Urea Nitrogen) 12 mg/dL (8.4-25.7); Calc. Creatinine Clearance 142 mL/min (70-130); Calcium 8.3 mg/dL (7.8-10.44); Carbon Dioxide 18 mmol/L (22-29); Chloride 101 mmol/L (98-107); Glucose 106 mg/dL (70-105); Potassium 4.2 mmol/L (3.5-5.1); Sodium 130 mmol/L (136-145)
[2020-09-23] MEDS: Zinc Sulfate 220 MG CAP PO SCH (08:53)
[2020-09-23] MEDS: Ascorbic Acid 500 mg Chewable Tablet PO SCH (08:54)
[2020-09-23] MEDS: Ondansetron PF 4 MG/2 ML Vial IVP PRN (14:06)
[2020-09-23 17:41] LABS: SARS-CoV-2 NAA Rapid Test Presumptive Positive (NotDetected)
[2020-09-23] MEDS: REMDESIVIR (EUA) 100 MG in Sodium Chloride 0.9% 250 ML 230 ML IV SCH (18:18)
--- NOTE | 2020-09-23 19:02 | PDOC.HOSPP ---
- Subjective Encounter Date: 09/23/20 Encounter Time: 19:00 Subjective: Patient seen in follow-up for COVID-19 infection. Reports feeling better. - Objective Vital Signs & Weight: Vital Signs (12 hours) Temp Pulse Resp BP Pulse Ox 09/23/20 16:30 97.7 F 80 25 H 123/63 100 09/23/20 12:00 97.8 F 90 18 132/61 93 L 09/23/20 08:00 97.9 F 96 16 124/70 100 Weight Admit Weight 208 lb Weight 208 lb I&O: 09/22/20 09/23/20 09/24/20 06:59 06:59 06:59 Intake Total 120 1790 Output Total 275 1060 Balance -155 730 Result Diagrams: 09/23/20 04:37 09/23/20 04:37 Additional Labs: Labs and MAR reviewed by fl Hospitalist ROS - Review of Systems Cardiovascular: denies: chest pain, palpitations, orthopnea, paroxysmal noc. dyspnea, edema, light headedness Gastrointestinal: denies: nausea, vomiting, abdominal pain, diarrhea, con stipation, melena, hematochezia - Medication Medications: Active Medications Generic Name Dose Route Start Last Admin Trade Name Freq PRN Reason Stop Dose Admin Acetaminophen 650 mg 09/22/20 11:33 09/23/20 14:05 Acetaminophen 325 Mg Tab PO 650 mg Q4H PRN Administration Headache/Fever/Mild Pain (1-3) Ascorbic Acid 1,000 mg 09/23/20 09:00 09/23/20 08:54 Ascorbic Acid 500 Mg Chewable Tablet PO 1,000 mg DAILY LES Administration Guaifenesin/Dextromethorphan 15 ml 09/22/20 14:40 09/23/20 14:05 Guaifenesin Dm 100-10/5 Ml Udcup PO 15 ml Q4H PRN Administration Cough Remdesivir 100 mg/ Sodium 250 mls @ 250 mls/hr 09/23/20 15:00 09/23/20 18:18 Chloride IV 09/26/20 15:59 250 mls 1500 LES Administration Ondansetron HCl 4 mg 09/22/20 11:33 09/23/20 14:06 Ondansetron Pf 4 Mg/2 Ml Vial IVP 4 mg Q6H PRN Administration Nausea/Vomiting Zinc Sulfate 220 mg 09/23/20 09:00 09/23/20 08:53 Zinc Sulfate 220 Mg Cap PO 220 mg DAILY LES Administration Hospitalist Exam Vitals: Vital Signs (12 hours) Temp Pulse Resp BP Pulse Ox 09/23/20 16:30 97.7 F 80 25 H 123/63 100 09/23/20 12:00 97.8 F 90 18 132/61 93 L 09/23/20 08:00 97.9 F 96 16 124/70 100 Weight Admit Weight 208 lb Weight 208 lb General Appearance: awake alert Eye: anicteric sclera ENT: moist mucosa Neck: supple Heart: RRR Respiratory: rhonchi Gastrointestinal: soft, non-tender Skin: no rashes Psychiatric: normal affect, normal behavior Hosp A/P (1) COVID-19 virus infection Code(s): U07.1 - COVID-19 Status: Acute (2) Hyponatremia Code(s): E87.1 - HYPO-OSMOLALITY AND HYPONATREMIA Status: Acute (3) Elevated troponin Code(s): R77.8 - OTHER SPECIFIED ABNORMALITIES OF PLASMA PROTEINS Status: Acute (4) Elevated d-dimer Code(s): R79.89 - OTHER SPECIFIED ABNORMAL FINDINGS OF BLOOD CHEMISTRY Status: Acute - Plan (1) COVID-19 virus infection Code(s): U07.1 - COVID-19 Status: Acute (2) Hyponatremia Code(s): E87.1 - HYPO-OSMOLALITY AND HYPONATREMIA Status: Acute (3) Elevated troponin Code(s): R77.8 - OTHER SPECIFIED ABNORMALITIES OF PLASMA PROTEINS Status: Acute (4) Elevated d-dimer Code(s): R79.89 - OTHER SPECIFIED ABNORMAL FINDINGS OF BLOOD CHEMISTRY Status: Acute Plan: Patient became hypoxic yesterday, qualified for remdesivir. Continue vitamin C and zinc. Troponin elevation likely secondary to demand ischemia from COVID-19 infection. Mildly elevated D-dimer likely secondary to COVID-19 infection. Follow inflammatory markers.
[2020-09-24 05:14] LABS: #Monocytes 0.4 thou/uL (0.11-0.59); #Neutrophils 4.8 thou/uL (1.40-6.50); %Basophils 0.2 % (0.0-1.0); %Eosinophils 0.3 % (0.0-10.0); %Neutrophils 76.5 % (42.0-75.0); Hemoglobin 14.1 g/dL (14.0-18.0); Mean Corpuscular HGB CONC 34.2 g/dL (32.0-36.0); Mean Corpuscular Hemoglobin 30.7 pg (27.0-31.0); Mean Corpuscular Volume 89.7 fL (78.0-98.0); Mean Platelet Volume 7.8 fL (7.4-10.4); Platelet Count 218 thou/uL (130-400); RBC Distribution Width 13.2 % (11.5-14.5); Red Blood Cell (RBC) Count 4.59 mill/uL (4.70-6.10); White Blood Cell (WBC) Count 6.3 thou/uL (4.8-10.8)
[2020-09-24 05:33] LABS: Anion Gap 13 mmol/L (10-20); BUN (Urea Nitrogen) 12 mg/dL (8.4-25.7); Calc. Creatinine Clearance 151 mL/min (70-130); Calcium 8.2 mg/dL (7.8-10.44); Carbon Dioxide 23 mmol/L (22-29); Chloride 100 mmol/L (98-107); Glucose 106 mg/dL (70-105); Potassium 4.4 mmol/L (3.5-5.1); Sodium 132 mmol/L (136-145)
[2020-09-24] MEDS: Guaifenesin DM 100-10/5 ML UDCUP PO PRN ×3 (09:01→20:32)
[2020-09-24] MEDS: Ascorbic Acid 500 mg Chewable Tablet PO SCH (09:01)
[2020-09-24] MEDS: Zinc Sulfate 220 MG CAP PO SCH (09:01)
[2020-09-24] MEDS: Acetaminophen 325 MG TAB PO PRN ×3 (09:01→20:32)
[2020-09-24] MEDS: REMDESIVIR (EUA) 100 MG in Sodium Chloride 0.9% 250 ML 230 ML IV SCH (15:53)
--- NOTE | 2020-09-24 19:23 | PDOC.HOSPP ---
- Subjective Encounter Date: 09/24/20 Encounter Time: 15:00 Subjective: She was seen in follow-up for respiratory failure. Denies nausea or vomiting. - Objective Vital Signs & Weight: Vital Signs (12 hours) Temp Pulse Resp BP Pulse Ox 09/24/20 16:00 98.6 F 78 18 131/63 99 09/24/20 12:05 98.0 F 85 20 100/55 L 98 09/24/20 08:26 97.8 F 91 18 116/58 L 98 Weight Admit Weight 208 lb Weight 208 lb I&O: 09/23/20 09/24/20 09/25/20 06:59 06:59 06:59 Intake Total 1790 1558 2009 Output Total 1060 425 750 Balance 730 1133 1260 Result Diagrams: 09/24/20 04:30 09/24/20 04:30 Additional Labs: I reviewed patient's labs and MAR EKG Reviewed by me: Yes (Normal sinus rhythm on telemetry) Hospitalist ROS - Review of Systems Cardiovascular: denies: chest pain, palpitations, orthopnea, paroxysmal noc. dyspnea, edema, light headedness Gastrointestinal: denies: nausea, vomiting, abdominal pain, diarrhea, constipation, melena, hematochezia - Medication Medications: Active Medications Generic Name Dose Route Start Last Admin Trade Name Freq PRN Reason Stop Dose Admin Acetaminophen 650 mg 09/22/20 11:33 09/24/20 15:52 Acetaminophen 325 Mg Tab PO 650 mg Q4H PRN Administration Headache/Fever/Mild Pain (1-3) Ascorbic Acid 1,000 mg 09/23/20 09:00 09/24/20 09:01 Ascorbic Acid 500 Mg Chewable Tablet PO 1,000 mg DAILY LES Administration Guaifenesin/Dextromethorphan 15 ml 09/22/20 14:40 09/24/20 15:52 Guaifenesin Dm 100-10/5 Ml Udcup PO 15 ml Q4H PRN Administration Cough Remdesivir 100 mg/ Sodium 250 mls @ 250 mls/hr 09/23/20 15:00 09/24/20 15:53 Chloride IV 09/26/20 15:59 250 mls 1500 LES Administration Ondansetron HCl 4 mg 09/22/20 11:33 09/23/20 14:06 Ondansetron Pf 4 Mg/2 Ml Vial IVP 4 mg Q6H PRN Administration Nausea/Vomiting Zinc Sulfate 220 mg 09/23/20 09:00 09/24/20 09:01 Zinc Sulfate 220 Mg Cap PO 220 mg DAILY LES Administration Hospitalist Exam Vitals: Vital Signs (12 hours) Temp Pulse Resp BP Pulse Ox 09/24/20 16:00 98.6 F 78 18 131/63 99 09/24/20 12:05 98.0 F 85 20 100/55 L 98 09/24/20 08:26 97.8 F 91 18 116/58 L 98 Weight Admit Weight 208 lb Weight 208 lb General Appearance: awake alert Eye: anicteric sclera ENT: moist mucosa Neck: supple Heart: RRR Respiratory: CTAB Gastrointestinal: soft, non-tender Skin: no rashes Psychiatric: normal affect, normal behavior Hosp A/P (1) COVID-19 virus infection Code(s): U07.1 - COVID-19 Status: Acute (2) Hyponatremia Code(s): E87.1 - HYPO-OSMOLALITY AND HYPONATREMIA Status: Acute (3) Elevated troponin Code(s): R77.8 - OTHER SPECIFIED ABNORMALITIES OF PLASMA PROTEINS Status: Acute (4) Elevated d-dimer Code(s): R79.89 - OTHER SPECIFIED ABNORMAL FINDINGS OF BLOOD CHEMISTRY Status: Acute - Plan (1) COVID-19 virus infection Code(s): U07.1 - COVID-19 Status: Acute (2) Hyponatremia Code(s): E87.1 - HYPO-OSMOLALITY AND HYPONATREMIA Status: Acute (3) Elevated troponin Code(s): R77.8 - OTHER SPECIFIED ABNORMALITIES OF PLASMA PROTEINS Status: Acute (4) Elevated d-dimer Code(s): R79.89 - OTHER SPECIFIED ABNORMAL FINDINGS OF BLOOD CHEMISTRY Status: Acute Plan: continue remdesivir. Continue vitamin C and zinc. Follow inflammatory markers.
[2020-09-25 05:32] LABS: #Lymphocytes 1.1 thou/uL (1.20-3.40); #Monocytes 0.5 thou/uL (0.11-0.59); #Neutrophils 5.1 thou/uL (1.40-6.50); %Eosinophils 0.2 % (0.0-10.0); %Lymphocytes 16.3 % (21.0-51.0); %Monocytes 7.3 % (0.0-10.0); %Neutrophils 76.2 % (42.0-75.0); Hemoglobin 14.2 g/dL (14.0-18.0); Mean Corpuscular HGB CONC 34.9 g/dL (32.0-36.0); Mean Corpuscular Hemoglobin 31.5 pg (27.0-31.0); Mean Corpuscular Volume 90.1 fL (78.0-98.0); Mean Platelet Volume 7.3 fL (7.4-10.4); Platelet Count 280 thou/uL (130-400); RBC Distribution Width 13.3 % (11.5-14.5); Red Blood Cell (RBC) Count 4.52 mill/uL (4.70-6.10); White Blood Cell (WBC) Count 6.7 thou/uL (4.8-10.8)
[2020-09-25 05:50] LABS: Anion Gap 13 mmol/L (10-20); BUN (Urea Nitrogen) 12 mg/dL (8.4-25.7); Calc. Creatinine Clearance 150 mL/min (70-130); Calcium 8.1 mg/dL (7.8-10.44); Carbon Dioxide 22 mmol/L (22-29); Chloride 101 mmol/L (98-107); Glucose 100 mg/dL (70-105); Potassium 4.5 mmol/L (3.5-5.1); Sodium 131 mmol/L (136-145)
[2020-09-25] MEDS: Zinc Sulfate 220 MG CAP PO SCH (09:50)
[2020-09-25] MEDS: Ascorbic Acid 500 mg Chewable Tablet PO SCH (09:50)
[2020-09-25] MEDS: Guaifenesin DM 100-10/5 ML UDCUP PO PRN (10:21)
--- NOTE | 2020-09-25 12:46 | PDOC.HOSPP ---
- Subjective Encounter Date: 09/25/20 Encounter Time: 08:30 Subjective: Patient seen for follow-up for COVID-19 infection, reports chest pain and cough are better. - Objective Vital Signs & Weight: Vital Signs (12 hours) Temp Pulse Resp BP Pulse Ox 09/25/20 10:05 98.0 F 87 24 H 107/60 96 09/25/20 04:06 99 09/25/20 04:00 98.1 F 89 15 123/72 99 Weight Admit Weight 208 lb Weight 208 lb I&O: 09/24/20 09/25/20 09/26/20 06:59 06:59 06:59 Intake Total 1558 2730 Output Total 425 1430 Balance 1133 1300 Result Diagrams: 09/25/20 05:06 09/25/20 05:06 Additional Labs: Labs and MAR reviewed by me EKG Reviewed by me: Yes (Telemetry shows normal sinus rhythm) Hospitalist ROS - Review of Systems Respiratory: reports: cough, dry. denies: shortness of breath, hemoptysis, SOB with excertion, pleuritic pain, sputum, wheezing Cardiovascular: reports: chest pain. denies: palpitations, orthopnea, p aroxysmal noc. dyspnea, edema, light headedness - Medication Medications: Active Medications Generic Name Dose Route Start Last Admin Trade Name Freq PRN Reason Stop Dose Admin Acetaminophen 650 mg 09/22/20 11:33 09/24/20 15:52 Acetaminophen 325 Mg Tab PO 650 mg Q4H PRN Administration Headache/Fever/Mild Pain (1-3) Ascorbic Acid 1,000 mg 09/23/20 09:00 09/25/20 09:50 Ascorbic Acid 500 Mg Chewable Tablet PO 1,000 mg DAILY LES Administration Guaifenesin/Dextromethorphan 15 ml 09/22/20 14:40 09/25/20 10:21 Guaifenesin Dm 100-10/5 Ml Udcup PO 15 ml Q4H PRN Administration Cough Remdesivir 100 mg/ Sodium 250 mls @ 250 mls/hr 09/23/20 15:00 09/24/20 15:53 Chloride IV 09/26/20 15:59 250 mls 1500 LES Administration Ondansetron HCl 4 mg 09/22/20 11:33 09/23/20 14:06 Ondansetron Pf 4 Mg/2 Ml Vial IVP 4 mg Q6H PRN Administration Nausea/Vomiting Zinc Sulfate 220 mg 09/23/20 09:00 09/25/20 09:50 Zinc Sulfate 220 Mg Cap PO 220 mg DAILY LES Administration Hospitalist Exam Vitals: Vital Signs (12 hours) Temp Pulse Resp BP Pulse Ox 09/25/20 10:05 98.0 F 87 24 H 107/60 96 09/25/20 04:06 99 09/25/20 04:00 98.1 F 89 15 123/72 99 Weight Admit Weight 208 lb Weight 208 lb General Appearance: awake alert Eye: anicteric sclera ENT: no oropharyngeal lesions Neck: symmetric, no thyromegaly Heart: RRR Respiratory: rales, rhonchi Gastrointestinal: soft, non-tender Skin: no rashes Psychiatric: normal affect, normal behavior Hosp A/P (1) COVID-19 virus infection Code(s): U07.1 - COVID-19 Status: Acute (2) Hyponatremia Code(s): E87.1 - HYPO-OSMOLALITY AND HYPONATREMIA Status: Acute (3) Elevated troponin Code(s): R77.8 - OTHER SPECIFIED ABNORMALITIES OF PLASMA PROTEINS Status: Acute (4) Elevated d-dimer Code(s): R79.89 - OTHER SPECIFIED ABNORMAL FINDINGS OF BLOOD CHEMISTRY Status: Acute - Plan (1) COVID-19 virus infection Code(s): U07.1 - COVID-19 Status: Acute (2) Hyponatremia Code(s): E87.1 - HYPO-OSMOLALITY AND HYPONATREMIA Status: Acute (3) Elevated troponin Code(s): R77.8 - OTHER SPECIFIED ABNORMALITIES OF PLASMA PROTEINS Status: Acute (4) Elevated d-dimer Code(s): R79.89 - OTHER SPECIFIED ABNORMAL FINDINGS OF BLOOD CHEMISTRY Status: Acute Plan: continue remdesivir till tomorrow, September 26. Continue vitamin C and zinc. Hyponatremia mild, likely asymptomatic
[2020-09-25] MEDS: REMDESIVIR (EUA) 100 MG in Sodium Chloride 0.9% 250 ML 230 ML IV SCH ×2 (15:45→18:34)
[2020-09-25 16:45] LABS: ALT (SGPT) 145 U/L (8-55); AST (SGOT) 197 U/L (5-34)
[2020-09-25] MEDS: Acetaminophen 325 MG TAB PO PRN (18:43)
[2020-09-26] MEDS: Ascorbic Acid 500 mg Chewable Tablet PO SCH (07:56)
[2020-09-26] MEDS: Zinc Sulfate 220 MG CAP PO SCH (07:56)
[2020-09-26 08:50] LABS: ALT (SGPT) 174 U/L (8-55); ALT (SGPT) 175 U/L (8-55); AST (SGOT) 142 U/L (5-34); Albumin 3.1 g/dL (3.5-5.0); Alkaline Phosphatase 76 U/L (40-110); Bilirubin, Direct 0.5 mg/dL (0.1-0.3); Protein, Total 6.5 g/dL (6.0-8.3)
[2020-09-26 08:51] LABS: Anion Gap 12 mmol/L (10-20); BUN (Urea Nitrogen) 13 mg/dL (8.4-25.7); Calc. Creatinine Clearance 144 mL/min (70-130); Calcium 8.6 mg/dL (7.8-10.44); Carbon Dioxide 24 mmol/L (22-29); Chloride 100 mmol/L (98-107); Glucose 97 mg/dL (70-105); Potassium 4.3 mmol/L (3.5-5.1); Sodium 132 mmol/L (136-145)
[2020-09-26] MEDS: Acetaminophen 325 MG TAB PO PRN (08:54)
[2020-09-26] MEDS: Guaifenesin DM 100-10/5 ML UDCUP PO PRN (08:54)
--- NOTE | 2020-09-26 13:07 | PDOC.DS.DS ---
Provider Date of Admission: 09/22/20 13:40 Date of Discharge: 09/26/20 Admitting Provider: Eduar Gavin MD Primary Care Physician: NO PCP PROVIDER Course Hospital Course: Discharge diagnosis: 1. Acute hypoxic respiratory failure 2. COVID-19 pneumonia 3. Hyponatremia 4. Abnormal liver function tests Hospital course: Patient is a pleasant 49-year-old gentleman who was admitted to the hospital on September 22, 2020 for with acute hypoxic respiratory failure secondary to COVID- 19 pneumonia. He was initially not hypoxic but subsequently became hypoxic. He was started on remdesivir. He improved clinically but continues to require oxygen. He is being discharged home on steroids, vitamin C, zinc and aspirin. He is advised to follow-up with his primary care provider to have his LFTs rech ecked. He qualified for home oxygen. Arrangements are being made for the same prior to discharge. Discharge destination: Home Total amount of time spent coordinating this discharge: 32 minutes Lab Results: 09/25/20 05:06 09/26/20 08:02 Abnormal Lab Results - Last 48 hrs 09/22/20 12:42: Crossmatch See Detail 09/25/20 05:06: Sodium 131 L 09/25/20 05:06: RBC 4.52 L, Hct 40.7 L, MCH 31.5 H, MPV 7.3 L, Neutrophils % 76.2 H, Lymphocytes % 16.3 L, Lymphocytes # 1.1 L 09/25/20 16:18: AST 197 H, ALT 145 H 09/26/20 08:02: Sodium 132 L 09/26/20 08:02: AST 142 H, ALT 174 H 09/26/20 08:02: Direct Bilirubin 0.5 H, AST 142 H, ALT 175 H, Albumin 3.1 L Microbiology - Entire Visit 09/21/20 23:59 Venous blood - Right Arm Blood Culture - Preliminary NO GROWTH AT 48 HOURS 09/21/20 23:59 Venous blood - Right Hand Blood Culture - Preliminary NO GROWTH AT 48 HOURS Vitals: Vital Signs (12 hours) Temp Pulse Resp BP Pulse Ox 09/26/20 11:40 97.9 F 85 16 119/79 97 09/26/20 09:15 76 128/69 96 09/26/20 08:00 98 09/26/20 07:45 98.5 F 76 16 118/80 98 09/26/20 05:30 97.9 F 94 18 130/69 98 Weight Admit Weight 208 lb Weight 208 lb Physical Exam: The patient was seen and examined on the day of discharge. Patient denies chest pain or shortness of breath. Vital signs are stable. S1 and S2 are heard. Lungs are clear to auscultation bilaterally. Problem (1) COVID-19 virus infection Code(s): U07.1 - COVID-19 Status: Acute (2) Hyponatremia Code(s): E87.1 - HYPO-OSMOLALITY AND HYPONATREMIA Status: Acute (3) Elevated troponin Code(s): R77.8 - OTHER SPECIFIED ABNORMALITIES OF PLASMA PROTEINS Status: Acute (4) Elevated d-dimer Code(s): R79.89 - OTHER SPECIFIED ABNORMAL FINDINGS OF BLOOD CHEMISTRY Status: Acute Plan Prescriptions: Dexamethasone 6 mg PO DAILY #10 tablet Aspirin [Ecotrin Low Strength] 81 mg PO DAILY #14 tab Ascorbic Acid [Vitamin C] 1,000 mg PO DAILY #10 tablet Zinc Sulfate [Zinc-220] 220 mg PO DAILY #10 capsule Home Medications: Medication Instructions Recorded Confirmed Type Ascorbic Acid [Vitamin C] 1,000 mg PO DAILY #10 tablet 09/26/20 Rx Aspirin [Ecotrin Low Strength] 81 mg PO DAILY #14 tab 09/26/20 Rx Dexamethasone 6 mg PO DAILY #10 tablet 09/26/20 Rx Zinc Sulfate [Zinc-220] 220 mg PO DAILY #10 capsule 09/26/20 Rx Allergies: No Known Allergies Allergy (Verified 09/22/20 03:28) Activity:: Activity as Tolerated Nourishment:: Regular Diet Referrals: PROVIDER,NO PCP [Primary Care Provider] - Disposition: HOME Quality CORE MEASURES:: N/A
[2020-09-26] MEDS: REMDESIVIR (EUA) 100 MG in Sodium Chloride 0.9% 250 ML 230 ML IV SCH (14:54)
[2020-09-26 17:46] VITALS: BP 121/68; TEMP 97.8
--- NOTE | 2020-09-28 12:57 | EKG ---
Test Reason : Blood Pressure : / mmHG Vent. Rate : 083 BPM Atrial Rate : 083 BPM P-R Int : 136 ms QRS Dur : 084 ms QT Int : 392 ms P-R-T Axes : 038 -18 007 degrees QTc Int : 460 ms Normal sinus rhythm Possible Anterior infarct , age undetermined Abnormal ECG Confirmed by BYRON FIGUEROA M.D. ([id number]), editorial assistant MANFRED GUZMAN ([id number]) on 09/28/2020 12:56:41 PM Referred By: Confirmed By:BYRON FIGUEROA M.D.
== END 2020-09-26 17:57 | disposition home or self-care (01) | DRG 177 ==
LOC: ERS 20:34 → 2SW 09-22 02:12 → OBSVTOIN 09-22 13:40 → T4-A 09-25 20:57
PROVIDERS: ADMIT Student in an Organized Health Care Education/Training Program; ATTEND Internal Medicine
PROC: XW033E5 Introduction of Remdesivir Anti-infective into Peripheral Vein, Percutaneous Approach, New Technology Group 5 (ICD-10-PCS; principal; 2020-09-22)
DX: U07.1 COVID-19 (principal); J96.01 Acute respiratory failure with hypoxia; J12.82 Pneumonia due to coronavirus disease 2019; E87.1 Hypo-osmolality and hyponatremia; I24.8 Other forms of acute ischemic heart disease; E66.9 Obesity, unspecified; Z68.30 Body mass index [BMI] 30.0-30.9, adult; R94.5 Abnormal results of liver function studies
CPT/HCPCS: 36415; 36430; 71045; 71275; 80048; 80053; 82550; 82553; 84450; 84460; 84484; 85025; 85379; 86850; 86870; 86900; 86901; 86922; 87040; 93005; 96374; 96375; 96376; G0378; J1885; J2405; J7050; P9017; U0002